=== PATIENT | male | born 1950 | race African-American/Black ===

== ENCOUNTER 2017-10-22 16:50 | Emergency (ER) | payer MEDICARE, MEDICAID ==
[2017-10-22 17:30] LABS: Hematocrit 47.5 % (42.0-52.0); Mean Platelet Volume 8.8 fL (7.4-10.4); Red Blood Cell (RBC) Count 5.26 mill/uL (4.70-6.10); White Blood Cell (WBC) Count 6.5 thou/uL (4.8-10.8)
--- NOTE | 2017-10-22 17:37 | RAD ---
PORTABLE CHEST: 10/22/17 HISTORY: Chest pain. Heart size is borderline. There are atherosclerotic changes of the aorta. The lungs are clear of any infiltrative process. IMPRESSION: Borderline heart size. No acute process. POS: [facility]
[2017-10-22 17:48] LABS: Band 2 % (5-11); Neutrophil 64 % (42-75); Reactive Lymphocytes 8 % (0-10)
[2017-10-22 17:52] LABS: ALT (SGPT) 44 U/L (8-55); AST (SGOT) 50 U/L (5-34); Alkaline Phosphatase 85 U/L (40-150); Anion Gap 14 mmol/L (10-20); BUN (Urea Nitrogen) 14 mg/dL (8.4-25.7); Bilirubin, Total 0.6 mg/dL (0.2-1.2); CK (CPK) 446 U/L (30-200); Calc. Creatinine Clearance 0 mL/min (70-130); Calcium 8.8 mg/dL (7.8-10.44); Carbon Dioxide 23 mmol/L (23-31); Chloride 99 mmol/L (98-107); Estimated GFR-MDRD 82; Protein, Total 7.5 g/dL (5.8-8.1)
[2017-10-22 17:57] LABS: Troponin I Less than 0.010 ng/mL (< 0.028)
== END 2017-10-22 19:30 | disposition home or self-care (01) ==
LOC: ERS 16:50
DX: J11.1 Influenza due to unidentified influenza virus with other respiratory manifestations (principal); I10 Essential (primary) hypertension; K27.9 Peptic ulcer, site unspecified, unspecified as acute or chronic, without hemorrhage or perforation; F17.210 Nicotine dependence, cigarettes, uncomplicated
CPT/HCPCS: 36415; 71010; 80053; 82550; 82553; 84484; 85025; 93005

== ENCOUNTER 2019-02-02 15:09 | Emergency (ER) | payer MEDICARE, MEDICAID ==
[~2019-02-02 15:09] MED LIST: ISOVUE-370 76%-LOCM 1 ML ONE
[2019-02-02] MEDS ORDERED: Morphine 4 MG/ML VIAL ONE (18:04)
[2019-02-02] MEDS ORDERED: Ondansetron PF 4 MG/2 ML Vial ONE (18:04)
[2019-02-02 18:19] LABS: #Basophils 0.1 thou/uL (0.0-0.2); #Eosinphils 0.1 thou/uL (0.0-0.7); #Monocytes 1.2 thou/uL (0.11-0.59); #Neutrophils 4.7 thou/uL (1.40-6.50); %Eosinophils 0.7 % (0.0-10.0); %Lymphocytes 24.7 % (21.0-51.0); %Monocytes 14.8 % (0.0-10.0); %Neutrophils 58.8 % (42.0-75.0); Hemoglobin 15.2 g/dL (14.0-18.0); Mean Corpuscular Hemoglobin 29.8 pg (27.0-31.0); Mean Corpuscular Volume 92.9 fL (78.0-98.0); Mean Platelet Volume 8.7 fL (7.4-10.4); Platelet Count 252 thou/uL (130-400); RBC Distribution Width 12.9 % (11.5-14.5); White Blood Cell (WBC) Count 8.1 thou/uL (4.8-10.8)
[2019-02-02 18:42] LABS: ALT (SGPT) 42 U/L (8-55); AST (SGOT) 81 U/L (5-34); Albumin 3.7 g/dL (3.4-4.8); Alkaline Phosphatase 340 U/L (40-150); Anion Gap 11 mmol/L (10-20); BUN (Urea Nitrogen) 6 mg/dL (8.4-25.7); Bilirubin, Total 1.5 mg/dL (0.2-1.2); Calc. Creatinine Clearance 0 mL/min (70-130); Calcium 10.9 mg/dL (7.8-10.44); Carbon Dioxide 27 mmol/L (23-31); Chloride 99 mmol/L (98-107); Estimated GFR-MDRD Greater than 90; Globulin 4.4 g/dL (2.4-3.5); Glucose 101 mg/dL (80-115); Lipase 53 U/L (8-78); Potassium 4.4 mmol/L (3.5-5.1); Protein, Total 8.1 g/dL (5.8-8.1); Sodium 133 mmol/L (136-145)
--- NOTE | 2019-02-02 19:26 | CT ---
CT PULMONARY ANGIOGRAM WITH IV CONTRAST AND 3D POST PROCESSING: History: Chest pain. FINDINGS: There is good contrast opacification of the pulmonary artery vasculature without filling defects to s uggest pulmonary embolism. The thoracic aorta is ectatic measuring up to 4 cm, without aneurysmal dis section. No pericardial effusions are seen. Patchy infiltrates are seen in the lower lung weinberg. The re are scattered small pulmonary nodules measuring up to 6 mm (lateral segment right middle lobe). Upper abdominal tomograms demonstrate multiple masses in the liver. There are degenerative changes in the spine. IMPRESSION: 1. No CT evidence of pulmonary embolism. 2. Findings are suspicious for liver and pulmonary metastases. POS: [facility]
== END 2019-02-02 19:30 | disposition home or self-care (01) ==
LOC: ERS 15:09
DX: R07.9 Chest pain, unspecified (principal); R10.9 Unspecified abdominal pain; I10 Essential (primary) hypertension; F17.210 Nicotine dependence, cigarettes, uncomplicated; Z79.899 Other long term (current) drug therapy
CPT/HCPCS: 36415; 71275; 80053; 83690; 84484; 85025; 93005; 96361; 96374; 96375; J2270; J2405; Q9966

== ENCOUNTER 2019-02-10 08:12 | Day surgery (SDC) | payer MEDICARE, MEDICAID ==
[2019-02-09 08:47] VITALS: BMI 20.5
[~2019-02-10 08:12] MED LIST changes: -ISOVUE-370 76%-LOCM 1 ML ONE; +Prevnar 13-Val Conj/PF 0.5 ML SYRINGE IM ONE
[2019-02-10 08:44] LABS: PTT 30.5 SEC (22.9-36.1); Prothrombin Time 13.5 SEC (12.0-14.7)
[2019-02-10] MEDS ORDERED: Sodium Bicarbonate 2.5 MEQ/5 ML VIAL ONE (10:23)
[2019-02-10] MEDS ORDERED: Fentanyl 100 MCG/2 ML VIAL ONE (10:23)
[2019-02-10] MEDS ORDERED: Midazolam HCl 2 mg/2 ml Vial ONE (10:23)
[2019-02-10] MEDS ORDERED: Acetaminophen 500 MG TAB ONE (11:19)
[2019-02-10 11:41] VITALS: BP 135/76; TEMP 98.2
--- NOTE | 2019-02-10 14:08 | CT ---
CT-guided liver mass biopsy HISTORY: Extensive liver metastases. FINDINGS: After explaining the procedure and answering all questions, Limited CT imaging of the abdom en was performed. An anterior approach to a medial segment left liver lobe lesion was planned. Sterile technique, but for local anesthesia and CT guidance, and an anterior subxiphoid approach were used carefully advanced of a 17-gauge trocar needle and a large hypodense mass at the medial segment left liver lobe. This was confirmed with CT. A total of 4 18-gauge biopsy specimens were obtained and submitted to pathology to confirm specimen a dequacy. Needle was removed. Postprocedure imaging shows no evidence of complication. Patient tolerated the pr ocedure well and was returned to the holding area in good condition for further monitoring. IMPRESSION: Technically successful CT-guided biopsy liver mass. Pathology is pending.
== END 2019-02-10 12:20 | disposition home or self-care (01) ==
LOC: CT 08:12
PROVIDERS: ATTEND Internal Medicine Hematology & Oncology
PROC: 0FD23ZX Extraction of Left Lobe Liver, Percutaneous Approach, Diagnostic (ICD-10-PCS; principal; 2019-02-10)
DX: C22.9 Malignant neoplasm of liver, not specified as primary or secondary (principal); F17.210 Nicotine dependence, cigarettes, uncomplicated; J44.9 Chronic obstructive pulmonary disease, unspecified; B19.20 Unspecified viral hepatitis C without hepatic coma; I10 Essential (primary) hypertension
CPT/HCPCS: 36415; 47000; 77002; 85610; 85730; 88307; 88333; 88334; J2250; J3010

== ENCOUNTER 2019-03-05 08:15 | Inpatient (IN) | payer MEDICARE, MEDICAID ==
--- NOTE | 2019-03-05 08:34 | CT ---
CT HEAD NONCONTRAST: HISTORY: CVA. Difficulty speaking. FINDINGS: There is no evidence of acute intracranial hemorrhage or infarct. Mild diffuse cortical atrophy and c hronic ischemic small vessel disease. There is no mass effect or shift of midline structures. Very dense calcification within the carotid siphons bilaterally. IMPRESSION: No acute cranial abnormalities are demonstrated. Severe atherosclerosis. Findings were called to Dr. Kim in the Emergency Department at 0831 hours. Code CR. Transcribed Date/Time: 03/05/2019 8:36 AM
[2019-03-05 09:06] LABS: Hemoglobin 18.7 g/dL (14.0-18.0); Mean Corpuscular HGB CONC 31.8 g/dL (32.0-36.0); Mean Corpuscular Hemoglobin 29.9 pg (27.0-31.0); Mean Platelet Volume 9.5 fL (7.4-10.4); Platelet Count 334 thou/uL (130-400); RBC Distribution Width 13.9 % (11.5-14.5); Red Blood Cell (RBC) Count 6.25 mill/uL (4.70-6.10); White Blood Cell (WBC) Count 15.2 thou/uL (4.8-10.8)
[2019-03-05 09:12] LABS: INR-International Normal Ratio 1.1; PTT 25.8 SEC (22.9-36.1); Prothrombin Time 14.3 SEC (12.0-14.7)
--- NOTE | 2019-03-05 09:14 | RAD ---
Portable chest: HISTORY: Mental status change. COMPARISON: 01/30/2019 Right lower lobe atelectasis and/or infiltrate and probable small effusion. Vascular markings normal. Left lung clear. IMPRESSION: Right basilar infiltrate and atelectasis with probable small effusion.
[2019-03-05 09:18] LABS: Band 3 % (5-11); Lymphocytes 8 % (21-51); Monocytes 4 % (0-10)
[2019-03-05 09:19] LABS: Platelet Morphology Comment Appears Adequate
[2019-03-05 09:31] LABS: ALT (SGPT) 79 U/L (8-55); AST (SGOT) 162 U/L (5-34); Albumin 3.6 g/dL (3.4-4.8); Alkaline Phosphatase 257 U/L (40-150); Anion Gap 17 mmol/L (10-20); BUN (Urea Nitrogen) 43 mg/dL (8.4-25.7); Bilirubin, Total 4.7 mg/dL (0.2-1.2); CK (CPK) 17 U/L (30-200); Calc. Creatinine Clearance 0 mL/min (70-130); Carbon Dioxide 28 mmol/L (23-31); Chloride 106 mmol/L (98-107); Estimated GFR-MDRD 76; Globulin 5.7 g/dL (2.4-3.5); Glucose 91 mg/dL (80-115); Potassium 3.9 mmol/L (3.5-5.1); Protein, Total 9.3 g/dL (5.8-8.1); Sodium 147 mmol/L (136-145)
[2019-03-05] MEDS ORDERED: Piperacillin/Tazobactam 4.5 GM VIAL ONE (09:33)
[2019-03-05] MEDS ORDERED: Morphine 4 MG/ML VIAL ONE (09:33)
[2019-03-05] MEDS ORDERED: Bisacodyl 5 MG TAB PO PRN (10:00)
[2019-03-05] MEDS ORDERED: Vancomycin HCl 1 GM in Premix Bag 1 BAG IVPB SCH (10:00)
[2019-03-05] MEDS ORDERED: Zoledronic Acid 4 MG in Sodium Chloride 0.9% 100 ML IVPB SCH (10:00)
[2019-03-05] MEDS ORDERED: Ondansetron PF 4 MG/2 ML Vial ONE (10:25)
--- NOTE | 2019-03-05 11:42 | HP ---
PRIMARY CARE PROVIDER: Darlene Lozano MD. CHIEF COMPLAINT: Weakness. HISTORY OF PRESENT ILLNESS: Mr. Rutherford is a pleasant 68-year-old gentleman, who was seen at [facility] on March 05, 2019. He is a chemotherapy patient for liver cancer. He initially presented to the emergency room because of concern over slurred speech. However, it was found that he had dry mouth; and therefore, his words were not articulating well. Overall, he is a poor historian. He denies any nausea or vomiting. He reports having fever last night. He also reports having right-sided chest discomfort, but is unable to characterize it further. He reports cough. He denies any abdominal pain. REVIEW OF SYSTEMS: All other systems reviewed and found to be negative. PAST MEDICAL HISTORY: Asthma, hypertension, peptic ulcer disease, and liver cancer. PAST SURGICAL HISTORY: Gastric surgery. SOCIAL HISTORY: The patient is a current smoker. He smokes half a pack of cigarettes a day. He reports occasional alcohol use. Denies recreational drug use. FAMILY HISTORY: The patient denies any family history of premature coronary artery disease. CODE STATUS: I discussed his code status. He is full code. ALLERGIES: NO KNOWN DRUG ALLERGIES. CURRENT MEDICATIONS: 1. Tamsulosin 0.4 mg daily. 2. Trazodone 50 mg at bedtime. 3. Morphine 15 mg every 4 hours as needed. 4. Zofran p.r.n. 5. Amlodipine 5 mg daily. 6. Ranitidine 150 mg daily. 7. Narcan p.r.n. PHYSICAL EXAMINATION: GENERAL: On examination, Mr. Rutherford is awake and alert, not in acute distress. VITAL SIGNS: Blood pressure is 124/86, pulse 85, respiratory rate 17, and oxygen saturation 98% on room air. He appears malnourished. EYES: The patient has scleral icterus. No conjunctival pallor. ENT: Dry mucosal membranes. No oropharyngeal erythema or exudates. NECK: Supple and nontender. Trachea is midline. RESPIRATORY: Accessory muscles of breathing are not active. Chest wall movements are symmetric bilaterally. He has wheezing over the right base. CARDIOVASCULAR: S1 and S2 are heard, regular. Peripheral pulses palpable. No carotid bruit. No pericardial rub. ABDOMEN: Soft and nontender. Bowel sounds heard. SKIN: No rashes or subcutaneous nodules. LYMPHATIC: No cervical lymphadenopathy. NEUROLOGIC: Cranial nerves 2 through 12 intact. Deep tendon reflexes 2+. MUSCULOSKELETAL: The patient is able to move all 4 extremities. PSYCHIATRIC: The patient is oriented to person only, not to place or time. Affect is normal. LABORATORY DATA: Mr. Rutherford's labs and investigations were reviewed. I reviewed his electrocardiogram, which shows sinus tachycardia, no ST changes to suggest an acute coronary syndrome. I also reviewed his chest x-ray, which shows right lower lobe infiltrate. Noncontrast CT scan of the brain did not show any acute intracranial abnormalities. He has leukocytosis with 15,200 white cells, elevated hemoglobin of 18.7, normal platelet count. INR 1.1. Elevated sodium of 147, normal potassium, normal creatinine, elevated blood urea nitrogen of 43, elevated calcium of 15. Elevated total bilirubin of 47, elevated AST of 162, elevated ALT of 79, . Elevated lactic acid level of 2.7. ASSESSMENT AND PLAN: Mr. Rutherford is a pleasant 68-year-old gentleman, who was seen at [facility] on March 05, 2019. His problem list includes: 1. Sepsis: Mr. Rutherford is presenting with sepsis, most likely secondary to pneumonia. He will be admitted to the hospital for further management. 2. Pneumonia: He has been started on vancomycin and Zosyn, which I will continue. We will follow blood cultures. 3. Hypercalcemia: The patient has received a dose of Zometa. Oncology Service will be consulted for opinion and help with management. I will also administer calcitonin. 4. Dehydration: The patient is clinically dehydrated. We will provide intravenous fluids and reassess. 5. History of hepatocellular carcinoma: Further management per Oncology Service. 6. Abnormal liver function tests: Secondary to hepatocellular carcinoma. 7. Hypertension: We will monitor vital signs and titrate antihypertensives as needed. Many thanks for allowing me to participate in your patient's care. Please feel free to contact me with any questions or concerns. LEVEL OF RISK: High. LEVEL OF COMPLEXITY: High. Job ID: [id number]
[2019-03-05] MEDS: Vancomycin HCl 750 MG in Sodium Chloride 0.9% 250 ML 250 ML IVPB SCH ×2 (13:09→14:07)
[2019-03-05] MEDS: Sodium Chloride 0.9% 1,000 ML IV SCH (13:29)
[2019-03-05] MEDS: Piperacillin/Tazobactam 4.5 GM in Sodium Chloride 0.9% 100 ML IVPB SCH ×2 (14:09→22:20)
[2019-03-05 14:11] LABS: Troponin I Less than 0.010 ng/mL (< 0.028)
[2019-03-05] MEDS ORDERED: Prevnar 13-Val Conj/PF 0.5 ML SYRINGE IM ONE (14:30)
[2019-03-05 15:33] LABS: Bilirubin Small (Negative); Blood, Urine Negative (Negative); Clarity CLEAR (Clear); Glucose, Urine (Dipstick) Negative (Negative); Leukocyte Negative (Negative); Nitrite Negative (Negative); Protein, Urine (Dipstick) Negative (Neg-Trace); Specific Gravity, Urine 1.021 (1.002-1.036)
[2019-03-05 15:42] LABS: Bacteria/HPF None Seen HPF (None Seen); Hyaline Casts/LPF 0-3 HYALINE CAST LPF (0-3 Hyaline); Pathc Cast-AUWi Flag 0.13 (0-2.49); Squamous Epithelial 0-3 HPF (0-3); WBC/HPF 0-3 HPF (0-3)
[2019-03-05 18:36] LABS: Troponin I Less than 0.010 ng/mL (< 0.028)
[2019-03-06] MEDS ORDERED: Ibuprofen 600 MG TAB PO SCH (02:00)
[2019-03-06] MEDS: Sodium Chloride 0.9% 1,000 ML IV SCH (02:24)
[2019-03-06 04:27] LABS: Anion Gap 16 mmol/L (10-20); BUN (Urea Nitrogen) 50 mg/dL (8.4-25.7); Calc. Creatinine Clearance 32 mL/min (70-130); Carbon Dioxide 26 mmol/L (23-31); Chloride 111 mmol/L (98-107); Estimated GFR-MDRD 48; Glucose 84 mg/dL (80-115); Potassium 3.6 mmol/L (3.5-5.1); Sodium 149 mmol/L (136-145)
[2019-03-06 04:33] LABS: Calcium 13.9 mg/dL (7.8-10.44)
[2019-03-06 05:16] LABS: Band 14 % (5-11); Hemoglobin 17.7 g/dL (14.0-18.0); Lymphocytes 5 % (21-51); MDiff Complete? YES; Mean Corpuscular HGB CONC 32.1 g/dL (32.0-36.0); Mean Corpuscular Hemoglobin 30.2 pg (27.0-31.0); Mean Platelet Volume 9.6 fL (7.4-10.4); Monocytes 8 % (0-10); Neutrophil 73 % (42-75); Platelet Count 298 thou/uL (130-400); Red Blood Cell (RBC) Count 5.86 mill/uL (4.70-6.10); White Blood Cell (WBC) Count 18.9 thou/uL (4.8-10.8)
[2019-03-06] MEDS: Piperacillin/Tazobactam 4.5 GM in Sodium Chloride 0.9% 100 ML IVPB SCH (05:51)
[2019-03-06] MEDS ORDERED: Eucerin (Mineral Oil/Petrolatum,White) 30 gm Jar TOP PRN (06:49)
[2019-03-06] MEDS ORDERED: Artificial Tears 18 DROP/0.9 ML EA EYE PRN (06:49)
[2019-03-06] MEDS ORDERED: Loratadine 10 MG TAB PO PRN (06:49)
[2019-03-06] MEDS ORDERED: hydrALAZINE 20 MG/ML VIAL SLOW IVP PRN (06:49)
[2019-03-06] MEDS ORDERED: Senokot S 8.6-50 MG TAB PO PRN (06:49)
[2019-03-06] MEDS ORDERED: Ondansetron PF 4 MG/2 ML Vial IVP PRN (06:49)
[2019-03-06] MEDS ORDERED: Cepastat Lozenges 1 LOZ PO PRN (06:49)
[2019-03-06] MEDS ORDERED: Loperamide HCl 2 MG CAP PO PRN (06:49)
[2019-03-06] MEDS ORDERED: Acetaminophen 500 MG TAB PO PRN (06:49)
[2019-03-06] MEDS ORDERED: Diabetic Tussin 200 MG/10 ML UDCUP PO PRN (06:49)
[2019-03-06] MEDS ORDERED: Sodium Chloride 0.65% Nasal 44 ML BOT EA NARE PRN (06:49)
[2019-03-06] MEDS ORDERED: Morphine 4 MG/ML VIAL SLOW IVP PRN (06:50)
[2019-03-06] MEDS: Sodium Chloride 0.45% 1,000 ML IV SCH ×2 (07:51→16:19)
[2019-03-06] MEDS: Enoxaparin Sodium 30 MG/0.3 ML SYRINGE SC SCH (08:17)
[2019-03-06] MEDS: Tamsulosin HCl 0.4 MG CAP PO SCH ×2 (08:18→08:24)
[2019-03-06] MEDS: Polyethylene Glycol 3350 17 GM Packet PO SCH (08:18)
[2019-03-06] MEDS: Saccharomyces boulardii 250 MG CAP PO SCH ×2 (08:18→08:24)
--- NOTE | 2019-03-06 10:13 | PDOC.PN ---
- Subjective Encounter Start Date: 03/06/19 Encounter Start Time: 07:00 pt is confused, cachectic, dehydrated, unable to take PO, very weak - Objective Resuscitation Status - Order Detail: 03/05/19 10:00 Resuscitation Status Routine Resuscitation Status: FULL: Full Resuscitation Discussed with: patient ALCIDES Reviewed: Yes Vital Signs & Weight: Vital Signs (12 hours) Temp Pulse Resp BP Pulse Ox 03/06/19 08:00 96 03/06/19 07:50 97.8 F 88 16 118/79 96 03/06/19 04:00 97.4 F L 92 16 144/91 H 98 03/06/19 01:54 95 16 139/97 H 03/05/19 23:32 97.7 F 94 16 128/87 96 Weight Weight 121 lb 0.54 oz I&O: 03/05/19 03/06/19 03/07/19 06:59 06:59 06:59 Intake Total 615 Output Total 600 Balance 15 Result Diagrams: 03/06/19 03:53 03/06/19 03:53 Phys Exam - Physical Examination Constitutional: NAD cachectic, HEENT: PERRLA, sclera anicteric dry MM Neck: no JVD, supple Respiratory: no wheezing, no rales, no rhonchi Cardiovascular: RRR, no significant murmur, no rub Gastrointestinal: soft, no distention, positive bowel sounds abdominal discomfort noted Musculoskeletal: no edema, pulses present Neurological: moves all 4 limbs Lymphatic: no nodes Deviation from normal: confused Skin: no rash Dx/Plan (1) Acute metabolic encephalopathy Code(s): G93.41 - METABOLIC ENCEPHALOPATHY Status: Acute Comment: due to hypercalcemia, dehydration, and possibly sepsis (2) Abnormal LFTs Code(s): R94.5 - ABNORMAL RESULTS OF LIVER FUNCTION STUDIES Status: Acute Comment: due to HCC (3) Acute kidney injury Code(s): N17.9 - ACUTE KIDNEY FAILURE, UNSPECIFIED Status: Acute Comment: due to volume deplation (4) Dehydration Code(s): E86.0 - DEHYDRATION Status: Acute (5) Hypercalcemia of malignancy Code(s): E83.52 - HYPERCALCEMIA Status: Acute (6) 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 Code(s): C78.00 - SECONDARY MALIGNANT NEOPLASM OF UNSPECIFIED LUNG; C22.0 - LIVER CELL CARCINOMA Status: Acute (7) Protein-calorie malnutrition, severe Code(s): E43 - UNSPECIFIED SEVERE PROTEIN-CALORIE MALNUTRITION Status: Chronic (8) Right lower lobe pneumonia Code(s): J18.1 - LOBAR PNEUMONIA, UNSPECIFIED ORGANISM Status: Acute (9) Sepsis Code(s): A41.9 - SEPSIS, UNSPECIFIED ORGANISM Status: Acute (10) BPH (benign prostatic hyperplasia) Code(s): N40.0 - BENIGN PROSTATIC HYPERPLASIA WITHOUT LOWER URINRY TRACT SYMP Status: Chronic (11) Hypertension Code(s): I10 - ESSENTIAL (PRIMARY) HYPERTENSION Status: Chronic - Plan cont current plan of care, 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 * consult palliative care, may need hospice or placement on discharge Review of Systems - Review of Systems Other: unable to review due to encephalopathy - Medications/Allergies Allergies/Adverse Reactions: Allergies Allergy/AdvReac Type Severity Reaction Status Date / Time No Known Allergies Allergy Verified 02/10/19 10:11 Medications: Current Medications Acetaminophen (Tylenol) 500 mg PO Q6H PRN PRN Reason: Mild Pain (1-3) Albuterol/Ipratropium (Duoneb) 3 ml NEB [id number] PRN PRN Reason: SOB &/or Wheezing Artificial Tears (Tears Naturale) 2 drop EA EYE PRN PRN PRN Reason: Dry Eyes Bisacodyl (Dulcolax) 10 mg PO DAILYPRN PRN PRN Reason: Constipation Enoxaparin Sodium (Lovenox) 30 mg SC 0900 [facility] Last Admin: 03/06/19 08:17 Dose: 30 mg Guaifenesin (Robitussin Sf) 200 mg PO Q4H PRN PRN Reason: Cough Hydralazine HCl (Apresoline) 10 mg SLOW IVP Q4H PRN PRN Reason: SBP > 180 and HR < 70 Sodium Chloride (1/2 Normal Saline) 1,000 mls @ 125 mls/hr IV .Q8H [facility] Last Admin: 03/06/19 07:51 Dose: 1,000 mls Piperacillin Sod/Tazobactam (Sod 3.375 gm/ Sodium Chloride) 100 mls @ 200 mls/ hr IVPB Q6HR [facility] Loperamide HCl (Imodium) 2 mg PO PRN PRN PRN Reason: Diarrhea/Loose Stools Loratadine (Claritin) 10 mg PO DAILYPRN PRN PRN Reason: Sinus Symptoms Mineral Oil/White Petrolatum (Eucerin Cream) 0 gm TOP BIDPRN PRN PRN Reason: Dry Skin Morphine Sulfate (Morphine) 2 mg SLOW IVP Q2H PRN PRN Reason: Pain Ondansetron HCl (Zofran Odt) 4 mg PO Q6H PRN PRN Reason: Nausea/Vomiting Ondansetron HCl (Zofran) 4 mg IVP Q6H PRN PRN Reason: Nausea/Vomiting Polyethylene Glycol (Miralax) 17 gm PO DAILY [facility] Last Admin: 03/06/19 08:18 Dose: Not Given Saccharomyces Boulardii (Florastor) 250 mg PO DAILY [facility] Last Admin: 03/06/19 08:24 Dose: Not Given Senna/Docusate Sodium (Senokot S) 2 tab PO BID PRN PRN Reason: Constipation Sodium Chloride ([place] Nasal [place] 0.65%) 0 ml EA NARE QIDPRN PRN PRN Reason: Nasal Congestion Sodium Chloride (Flush - Normal Saline) 10 ml IVF Q12HR [facility] Last Admin: 03/06/19 08:18 Dose: Not Given Sodium Chloride (Flush - Normal Saline) 10 ml IVF PRN PRN PRN Reason: Saline Flush Tamsulosin HCl (Flomax) 0.4 mg PO DAILY [facility] Last Admin: 03/06/19 08:24 Dose: Not Given Throat Lozenges (Cepastat Lozenges) 1 topher PO Q2H PRN PRN Reason: Sore Throat
[2019-03-06] MEDS: Piperacillin/Tazobactam 3.375 GM in Sodium Chloride 0.9% 100 ML IVPB SCH ×2 (11:33→17:05)
--- NOTE | 2019-03-06 14:17 | CON ---
DATE OF CONSULTATION: REASON FOR CONSULT: Liver cancer. HISTORY OF PRESENT ILLNESS: Mr. Rutherford is a 68-year-old gentleman with a history of hepatitis C virus, who was diagnosed with hepatocellular carcinoma in early January. His AFP was 90,000 at diagnosis[address] He saw Dr. Dumont and the plan was to obtain Flovent neb and oral chemotherapy for him. Over the last 2 weeks, he has gotten progressively weaker with significant weight loss, AFP has increased greater than 200,000. He began to have some altered mental status, so presented to the emergency room for evaluation. His calcium was 15. He did receive a dose of Zometa and he was started on IV fluids. He was seen at bedside with his mother and aunt. The patient is arousable and denies any pain. The patient is somnolent, but arousable and denies any pain at this time. PAST MEDICAL HISTORY: 1. Newly diagnosed stage 4 hepatocellular carcinoma. 2. Hypertension. 3. Asthma. 4. COPD. 5. Liver disease. 6. Acid reflex. 7. History of untreated hepatitis C. PAST SURGICAL HISTORY: Gastric surgery. ALLERGIES: NO KNOWN DRUG ALLERGIES. HOME MEDICATIONS: 1. Albuterol p.r.n. 2. Norvasc 5 mg daily. 3. Flovent b.i.d. 4. MS Contin 15 mg q.4 hours p.r.n. 5. Zofran p.r.n. 6. Ranitidine 150 mg b.i.d. 7. Flomax 0.4 mg daily. FAMILY HISTORY: Mother has lung cancer. Cousin has lung and liver cancer. SOCIAL HISTORY: . Lives with his mother. Current everyday smoker with 50 pack year history in the past. Alcohol and illicit drug use. REVIEW OF SYSTEMS: Unable to obtain secondary to somnolence. PHYSICAL EXAMINATION: VITAL SIGNS: Temperature is 97.4, pulse is 87, respiratory rate 16, and BP is 119/78. He is 93% on room air. GENERAL: Cachectic male, in no acute distress. HEENT: Normocephalic and atraumatic. NECK: Supple. CV: Regular rate and rhythm. LUNGS: Clear anterior. ABDOMEN: Distended. He has a palpable lower. EXTREMITIES: No clubbing, cyanosis, or edema. SKIN: No rash. HEMATOLOGIC: No petechiae or purpura. NEUROLOGIC: Unable to assess. PERTINENT LABS AND X-RAYS: Current WBCs are 18.9, hemoglobin 17.7, hematocrit 55.1, and platelet count 298,000, 73% neutrophils, 14% bands, and 5% lymphocytes. PT is 14.3, INR is 1.1, and PTT is 25.8. Sodium is 149, potassium 3.6, chloride 111, CO2 is 26, BUN is 50, creatinine 1.73, and calcium is 13.9. Troponin is negative. Urine is negative. Brain CT was negative for metastatic disease. Chest x-ray showed right lower lobe atelectasis. ASSESSMENT: 1. Stage 4 hepatoma with lung met. 2. Hypercalcemia. 3. Cachexia. DISCUSSION: The patient has received Zometa and is currently receiving IV fluids. We will continue to monitor his calcium. He his kidney function has declined over the last 24 hours. We will monitor that closely. The patient's MS Contin has been resumed. Palliative Care has been consulted. The patient clearly has progressed over the last several weeks, in fact doubling his alpha fetoprotein. The patient has not received the oral chemotherapy yet. We will discuss code status with Dr. Dumont and Dr. Jimenez, as he is currently a full code. I did discuss with the family and the patient that this is stage 4 disease and all treatment is palliative in nature and they stated understanding. Thank you for the consult. We will follow along closely. Job ID: [id number]
[2019-03-06 15:21] VITALS: BMI 16.4
[2019-03-07] MEDS: Piperacillin/Tazobactam 3.375 GM in Sodium Chloride 0.9% 100 ML IVPB SCH ×5 (00:18→23:51)
[2019-03-07] MEDS: Morphine 2 MG/ML SYRINGE SLOW IVP PRN ×4 (00:18→20:37)
[2019-03-07] MEDS: Sodium Chloride 0.45% 1,000 ML IV SCH ×2 (00:26→09:07)
[2019-03-07 08:48] LABS: #Eosinphils 0.1 thou/uL (0.0-0.7); #Lymphocytes 0.8 thou/uL (1.20-3.40); #Monocytes 1.1 thou/uL (0.11-0.59); #Neutrophils 12.4 thou/uL (1.40-6.50); %Basophils 0.1 % (0.0-1.0); %Eosinophils 0.7 % (0.0-10.0); %Lymphocytes 5.5 % (21.0-51.0); %Monocytes 7.7 % (0.0-10.0); Mean Corpuscular HGB CONC 31.1 g/dL (32.0-36.0); Mean Corpuscular Hemoglobin 29.3 pg (27.0-31.0); Mean Corpuscular Volume 94.1 fL (78.0-98.0); Mean Platelet Volume 9.9 fL (7.4-10.4); Platelet Count 252 thou/uL (130-400); RBC Distribution Width 14.1 % (11.5-14.5); Red Blood Cell (RBC) Count 5.48 mill/uL (4.70-6.10); White Blood Cell (WBC) Count 14.4 thou/uL (4.8-10.8)
[2019-03-07] MEDS: Enoxaparin Sodium 30 MG/0.3 ML SYRINGE SC SCH (09:07)
[2019-03-07] MEDS: Tamsulosin HCl 0.4 MG CAP PO SCH ×2 (09:07→09:13)
[2019-03-07] MEDS: Saccharomyces boulardii 250 MG CAP PO SCH ×2 (09:07→09:13)
[2019-03-07] MEDS: Polyethylene Glycol 3350 17 GM Packet PO SCH (09:07)
[2019-03-07 09:09] LABS: ALT (SGPT) 60 U/L (8-55); AST (SGOT) 137 U/L (5-34); Albumin 2.6 g/dL (3.4-4.8); Alkaline Phosphatase 181 U/L (40-150); Anion Gap 14 mmol/L (10-20); BUN (Urea Nitrogen) 56 mg/dL (8.4-25.7); Bilirubin, Total 5.1 mg/dL (0.2-1.2); Calc. Creatinine Clearance 29 mL/min (70-130); Carbon Dioxide 23 mmol/L (23-31); Chloride 112 mmol/L (98-107); Estimated GFR-MDRD 42; Globulin 4.4 g/dL (2.4-3.5); Glucose 60 mg/dL (80-115); Potassium 3.3 mmol/L (3.5-5.1); Sodium 146 mmol/L (136-145)
--- NOTE | 2019-03-07 09:52 | PDOC.PN ---
- Subjective Encounter Start Date: 03/07/19 Encounter Start Time: 07:00 Patient seen and examined. pt is still disoriented, No overnight events - Objective Resuscitation Status - Order Detail: 03/05/19 10:00 Resuscitation Status Routine Resuscitation Status: FULL: Full Resuscitation Discussed with: anabela MCGRATH Reviewed: Yes Vital Signs & Weight: Weight Admit Weight 119 lb Weight 121 lb 0.54 oz I&O: 03/06/19 03/07/19 03/08/19 06:59 06:59 06:59 Intake Total 615 1740 Output Total 600 Balance 15 1740 Result Diagrams: 03/07/19 08:31 03/07/19 08:31 Phys Exam - Physical Examination Constitutional: NAD HEENT: PERRLA, sclera anicteric Neck: no JVD, supple Respiratory: no wheezing, no rales, no rhonchi Cardiovascular: RRR, no significant murmur, no rub Gastrointestinal: soft, no distention, positive bowel sounds Musculoskeletal: no edema, pulses present Neurological: moves all 4 limbs Lymphatic: no nodes Psychiatric: normal affect Skin: normal turgor Dx/Plan (1) Acute metabolic encephalopathy Code(s): G93.41 - METABOLIC ENCEPHALOPATHY Status: Acute Comment: due to hypercalcemia, dehydration, and possibly sepsis (2) Abnormal LFTs Code(s): R94.5 - ABNORMAL RESULTS OF LIVER FUNCTION STUDIES Status: Acute Comment: due to HCC (3) Acute kidney injury Code(s): N17.9 - ACUTE KIDNEY FAILURE, UNSPECIFIED Status: Acute Comment: due to volume deplation (4) Dehydration Code(s): E86.0 - DEHYDRATION Status: Acute (5) Hypercalcemia of malignancy Code(s): E83.52 - HYPERCALCEMIA Status: Acute (6) 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 Code(s): C78.00 - SECONDARY MALIGNANT NEOPLASM OF UNSPECIFIED LUNG; C22.0 - LIVER CELL CARCINOMA Status: Acute (7) Protein-calorie malnutrition, severe Code(s): E43 - UNSPECIFIED SEVERE PROTEIN-CALORIE MALNUTRITION Status: Chronic (8) Right lower lobe pneumonia Code(s): J18.1 - LOBAR PNEUMONIA, UNSPECIFIED ORGANISM Status: Acute (9) Sepsis Code(s): A41.9 - SEPSIS, UNSPECIFIED ORGANISM Status: Acute (10) BPH (benign prostatic hyperplasia) Code(s): N40.0 - BENIGN PROSTATIC HYPERPLASIA WITHOUT LOWER URINRY TRACT SYMP Status: Chronic (11) Hypertension Code(s): I10 - ESSENTIAL (PRIMARY) HYPERTENSION Status: Chronic - Plan cont current plan of care, plan discussed w/ family, continue antibiotics, 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 * continue empiric zosyn * replace potassium * spoke with mother * his prognosis is very poor Review of Systems - Review of Systems Other: not reliable due to encephalopathy - Medications/Allergies Allergies/Adverse Reactions: Allergies Allergy/AdvReac Type Severity Reaction Status Date / Time No Known Allergies Allergy Verified 02/10/19 10:11 Medications: Current Medications Acetaminophen (Tylenol) 500 mg PO Q6H PRN PRN Reason: Mild Pain (1-3) Last Admin: 03/06/19 16:59 Dose: 500 mg Albuterol/Ipratropium (Duoneb) 3 ml NEB [id number] PRN PRN Reason: SOB &/or Wheezing Artificial Tears (Tears Naturale) 2 drop EA EYE PRN PRN PRN Reason: Dry Eyes Bisacodyl (Dulcolax) 10 mg PO DAILYPRN PRN PRN Reason: Constipation Enoxaparin Sodium (Lovenox) 30 mg SC 0900 [facility] Last Admin: 03/07/19 09:07 Dose: 30 mg Guaifenesin (Robitussin Sf) 200 mg PO Q4H PRN PRN Reason: Cough Hydralazine HCl (Apresoline) 10 mg SLOW IVP Q4H PRN PRN Reason: SBP > 180 and HR < 70 Sodium Chloride (1/2 Normal Saline) 1,000 mls @ 125 mls/hr IV .Q8H [facility] Last Admin: 03/07/19 09:07 Dose: 1,000 mls Piperacillin Sod/Tazobactam (Sod 3.375 gm/ Sodium Chloride) 100 mls @ 200 mls/ hr IVPB Q6HR [facility] Last Admin: 03/07/19 05:05 Dose: 100 mls Loperamide HCl (Imodium) 2 mg PO PRN PRN PRN Reason: Diarrhea/Loose Stools Loratadine (Claritin) 10 mg PO DAILYPRN PRN PRN Reason: Sinus Symptoms Mineral Oil/White Petrolatum (Eucerin Cream) 0 gm TOP BIDPRN PRN PRN Reason: Dry Skin Morphine Sulfate (Morphine) 2 mg SLOW IVP Q2H PRN PRN Reason: Pain Last Admin: 03/07/19 09:13 Dose: 2 mg Ondansetron HCl (Zofran Odt) 4 mg PO Q6H PRN PRN Reason: Nausea/Vomiting Ondansetron HCl (Zofran) 4 mg IVP Q6H PRN PRN Reason: Nausea/Vomiting Polyethylene Glycol (Miralax) 17 gm PO DAILY [facility] Last Admin: 03/07/19 09:07 Dose: Not Given Saccharomyces Boulardii (Florastor) 250 mg PO DAILY [facility] Last Admin: 03/07/19 09:13 Dose: Not Given Senna/Docusate Sodium (Senokot S) 2 tab PO BID PRN PRN Reason: Constipation Sodium Chloride ([place] Nasal [place] 0.65%) 0 ml EA NARE QIDPRN PRN PRN Reason: Nasal Congestion Sodium Chloride (Flush - Normal Saline) 10 ml IVF Q12HR [facility] Last Admin: 03/07/19 09:08 Dose: Not Given Sodium Chloride (Flush - Normal Saline) 10 ml IVF PRN PRN PRN Reason: Saline Flush Tamsulosin HCl (Flomax) 0.4 mg PO DAILY [facility] Last Admin: 03/07/19 09:13 Dose: Not Given Throat Lozenges (Cepastat Lozenges) 1 topher PO Q2H PRN PRN Reason: Sore Throat
[2019-03-07] MEDS ORDERED: Potassium Chloride 20 MEQ TAB PO SCH (10:00)
[2019-03-07] MEDS ORDERED: Potassium Chloride 20 MEQ in Premix Bag 1 BAG IVPB SCH (12:00)
[2019-03-07] MEDS ORDERED: Sodium Chloride 0.45% 1,000 ML IV SCH (12:05)
[2019-03-07] MEDS: Dextrose 5% in Water 1,000 ML IV SCH (13:26)
[2019-03-07] MEDS: Sodium Chloride 0.9% 1,000 ML IV SCH ×3 (17:17→22:27)
[2019-03-08] MEDS: Morphine 2 MG/ML SYRINGE SLOW IVP PRN ×4 (01:45→23:45)
[2019-03-08] MEDS: Sodium Chloride 0.9% 1,000 ML IV SCH ×4 (01:55→16:06)
[2019-03-08] MEDS: Dextrose 5% in Water 1,000 ML IV SCH ×3 (01:55→13:24)
[2019-03-08] MEDS: Piperacillin/Tazobactam 3.375 GM in Sodium Chloride 0.9% 100 ML IVPB SCH ×3 (05:17→17:55)
--- NOTE | 2019-03-08 08:00 | PRG ---
DATE OF SERVICE: 03/08/2019 SUBJECTIVE: A 68-year-old with recent diagnosis of hepatocellular cancer, admitted due to generalized weakness and failure to thrive. The patient also was found to have hypercalcemia and DELIO, necessitating Nephrology consult. The patient is more awake today with fluid resuscitation. Complained of right upper abdominal pain and tenderness. Denied fever, nausea, or vomiting. OBJECTIVE: VITAL SIGNS: Temperature 96.6, pulse 76, respiratory rate 16, SpO2 94 on room air, and blood pressure 126/77. GENERAL: Cachectic, elderly male, in no obvious distress. Afebrile, acyanotic. HEENT: Normocephalic, atraumatic. Pupils are reacting to light. Oral mucosa is moist. CARDIOVASCULAR: Regular rhythm and rate with normal heart sounds. RESPIRATORY: Fair air entry bilaterally with no obvious crackle or rhonchi, or use of accessory muscles. GASTROINTESTINAL: Abdomen is full with right upper quadrant tenderness. Bowel sound is normoactive. EXTREMITIES: Muscle wasting noted. Otherwise, no edema or erythema appreciated. Distal pulses are palpable. NEUROLOGIC: Conscious, and alert and oriented x3 with appropriate mental status. Conversational, and moving all limbs. DIAGNOSTIC DATA: CMP showed sodium of 141, potassium 3.2, creat 1.67 ASSESSMENT AND PLAN: 1. Hypercalcemia: This is most likely related to hepatocellular cancer. It is not driven by PTH, as intact PTH is low. Most likely, PTH-related peptide secreted by the hepatocellular cancer is responsible. The patient is status post treatment with Zometa. We will continue treatment with IV saline and monitor renal function and serum calcium. There is no overt evidence of fluid overload at this time, but should that happen, we will add diuretics. 2. Acute kidney injury: This most likely is due to hemodynamic factors related to hypercalcemia-induced diuresis and dehydration. Creat is begining to trend down. We will continue normal saline at 200 mL/h and monitor renal function. 3. Hypernatremia: Due to poor oral intake and free water losses. Resolved. We will discontinue D5 water. We will encourage oral intake and free water intake. 4. Hypokalemia. Due to diuresis initially hypercalcemia induced and now due to saline induced. Replete with potassium chloride. We will monitor and replete as needed. 5. Hepatocellular cancer, stage IV. Defer treatment to Hematology and Oncology. 6. Other treatment as per primary attending. Job ID: [id number] MTDD
[2019-03-08] MEDS: Saccharomyces boulardii 250 MG CAP PO SCH (08:16)
[2019-03-08] MEDS: Tamsulosin HCl 0.4 MG CAP PO SCH (08:17)
[2019-03-08] MEDS: Polyethylene Glycol 3350 17 GM Packet PO SCH ×2 (08:17→16:06)
[2019-03-08] MEDS: Enoxaparin Sodium 30 MG/0.3 ML SYRINGE SC SCH (08:17)
[2019-03-08 09:09] LABS: ALT (SGPT) 59 U/L (8-55); AST (SGOT) 138 U/L (5-34); Albumin 2.4 g/dL (3.4-4.8); Alkaline Phosphatase 176 U/L (40-150); Anion Gap 11 mmol/L (10-20); BUN (Urea Nitrogen) 51 mg/dL (8.4-25.7); Calc. Creatinine Clearance 33 mL/min (70-130); Calcium 10.3 mg/dL (7.8-10.44); Carbon Dioxide 19 mmol/L (23-31); Chloride 114 mmol/L (98-107); Estimated GFR-MDRD 50; Globulin 4.3 g/dL (2.4-3.5); Glucose 90 mg/dL (80-115); Potassium 3.2 mmol/L (3.5-5.1); Protein, Total 6.7 g/dL (5.8-8.1); Sodium 141 mmol/L (136-145)
--- NOTE | 2019-03-08 09:35 | PDOC.PN ---
- Subjective Encounter Start Date: 03/08/19 Encounter Start Time: 09:34 Subjective: alert, nno specific complaints - Objective Resuscitation Status - Order Detail: 03/05/19 10:00 Resuscitation Status Routine Resuscitation Status: FULL: Full Resuscitation Discussed with: patient ALCIDES Reviewed: Yes Vital Signs & Weight: Vital Signs (12 hours) Temp Pulse Resp BP Pulse Ox 03/08/19 08:00 97.6 F 65 16 111/62 95 Weight Admit Weight 119 lb Weight 121 lb 0.54 oz I&O: 03/07/19 03/08/19 03/09/19 06:59 06:59 06:59 Intake Total 1740 1050 Balance 1740 1050 Result Diagrams: 03/07/19 08:31 03/08/19 08:42 Phys Exam - Physical Examination Neck: no JVD Respiratory: clear to auscultation bilateral Cardiovascular: RRR, no significant murmur Gastrointestinal: positive bowel sounds tender over liver Musculoskeletal: no edema Dx/Plan (1) Abnormal LFTs Code(s): R94.5 - ABNORMAL RESULTS OF LIVER FUNCTION STUDIES Status: Acute Comment: due to HCC (2) Acute kidney injury Code(s): N17.9 - ACUTE KIDNEY FAILURE, UNSPECIFIED Status: Acute Comment: due to volume deplation (3) Acute metabolic encephalopathy Code(s): G93.41 - METABOLIC ENCEPHALOPATHY Status: Resolved Comment: due to hypercalcemia, dehydration, and possibly sepsis (4) Dehydration Code(s): E86.0 - DEHYDRATION Status: Resolved (5) Hypercalcemia of malignancy Code(s): E83.52 - HYPERCALCEMIA Status: Acute (6) 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 Code(s): C78.00 - SECONDARY MALIGNANT NEOPLASM OF UNSPECIFIED LUNG; C22.0 - LIVER CELL CARCINOMA Status: Acute (7) Hypertension Code(s): I10 - ESSENTIAL (PRIMARY) HYPERTENSION Status: Chronic Qualifiers: Hypertension type: essential hypertension Qualified Code(s): I10 - Essential (primary) hypertension (8) Protein-calorie malnutrition, severe Code(s): E43 - UNSPECIFIED SEVERE PROTEIN-CALORIE MALNUTRITION Status: Chronic - Plan calcium normalized on zometa -: on iv fluids for acute renal failure -: on iv morphine for pain -: discuss with oncology, prognosis poor * .
[2019-03-09] MEDS: Sodium Chloride 0.9% 1,000 ML IV SCH ×5 (01:07→22:52)
[2019-03-09] MEDS: Piperacillin/Tazobactam 3.375 GM in Sodium Chloride 0.9% 100 ML IVPB SCH ×5 (01:07→22:53)
[2019-03-09 04:53] LABS: ALT (SGPT) 63 U/L (8-55); AST (SGOT) 137 U/L (5-34); Albumin 2.6 g/dL (3.4-4.8); Alkaline Phosphatase 193 U/L (40-150); Anion Gap 11 mmol/L (10-20); BUN (Urea Nitrogen) 42 mg/dL (8.4-25.7); Bilirubin, Total 6.3 mg/dL (0.2-1.2); Calc. Creatinine Clearance 36 mL/min (70-130); Carbon Dioxide 20 mmol/L (23-31); Chloride 114 mmol/L (98-107); Estimated GFR-MDRD 54; Globulin 4.2 g/dL (2.4-3.5); Glucose 75 mg/dL (80-115); Protein, Total 6.8 g/dL (5.8-8.1); Sodium 142 mmol/L (136-145)
[2019-03-09 05:05] LABS: Potassium 2.8 mmol/L (3.5-5.1)
[2019-03-09] MEDS: Morphine 2 MG/ML SYRINGE SLOW IVP PRN (06:21)
[2019-03-09] MEDS ORDERED: Potassium Chloride 20 MEQ in Premix Bag 1 BAG IVPB SCH (07:00)
--- NOTE | 2019-03-09 07:26 | CON ---
DATE OF CONSULTATION: 03/07/2019 CONSULTING PHYSICIAN: Gwendolyn Thomas MD REASON FOR CONSULTATION: Hypercalcemia and acute kidney failure. HISTORY OF PRESENT ILLNESS: This is a 68-year-old male with past medical history significant for hypertension, peptic ulcer disease, hepatitis C infection, and recent diagnosis of hepatocellular cancer, admitted due to worsening generalized weakness associated with slurred speech. The patient is a poor historian and the following history was gleaned from review of medical record. He reportedly complained of fever. He was found to have elevated creatinine as well as hypernatremia, hence was admitted to the hospital. The patient received Zometa in the ER and was started on IV fluid with improvement in serum calcium from 15 to 12. Creatinine, however, went up from 1.16 on March 05 to 1.93 today. PAST MEDICAL HISTORY: 1. Recently diagnosed stage IV hepatocellular cancer. 2. Hypertension. 3. Asthma. 4. COPD. 5. Hepatitis C infection. 6. Gastroesophageal reflux disease. 7. Chronic liver disease. 8. Tobacco abuse disorder. 9. Back surgery. 10. History of gastric surgery. FAMILY HISTORY: Mother reportedly had lung cancer and a cousin has lung and liver cancer. SOCIAL HISTORY: The patient is a current everyday smoker, smokes about a pack a day. Occasional alcohol use also is reported, but there is no history of recreational drug use. The patient is . Lives with mother. ALLERGIES: NO KNOWN DRUG ALLERGIES REPORTED. HOME MEDICATIONS: 1. Albuterol p.r.n. 2. Amlodipine 5 mg daily. 3. Flovent b.i.d. 4. MS Contin 15 mg q.4 p.r.n. for pain. 5. Zofran 8 mg p.o. q.8 p.r.n. for nausea, vomiting. 6. Ranitidine 150 mg p.o. b.i.d. 7. Flomax 0.4 mg p.o. daily. REVIEW OF SYSTEMS: Could not be obtained due to the patient's condition. PHYSICAL EXAMINATION: VITAL SIGNS: Temperature 97.6, pulse 79, respiratory rate 16, SpO2 of 92% on room air, blood pressure is 103/61. Afebrile. GENERAL: Cachectic, elderly male, in no obvious distress. The patient is lethargic, but wakes up with stimulation, and goes back to sleep. HEENT: Anicteric. Normocephalic, atraumatic. Oral mucosa is dry. NECK: Supple with no obvious masses. RESPIRATORY: Fair air entry bilateral with no obvious rhonchi or crackles or use of accessory muscles. CARDIOVASCULAR: Regular rhythm and rate with normal heart sounds one and two. No obvious murmur was appreciated. GASTROINTESTINAL: Midline surgical scar noted. Right upper quadrant tenderness with hepatomegaly noted. Bowel sound is normoactive. EXTREMITIES: Cachectic with muscle wasting. No obvious edema or erythema appreciated. Distal pulses are palpable. NEUROLOGIC: The patient is lethargic. Wakes up with stimulation, but goes back to sleep. Answers few questions appropriately. DIAGNOSTIC DATA: CBC today showed WBC count of 14, hemoglobin of 16, platelet of 252. Coagulation panel showed PT 14.3, INR 1.1, PTT 25.8. CMP today showed sodium 146, potassium 3.3, chloride 112, CO2 23, BUN 56, creatinine 1.93, glucose 60, calcium 12.0, total bilirubin 5.1, AST 137, ALT 60, alkaline phosphatase 181, total protein 7.0, albumin 2.6, globulin 4.4. Urinalysis of March 05 showed clear urine with specific gravity of 1.021 with positive bilirubin, but negative protein, glucose, ketone, blood, nitrite, or leukocyte esterase. Chest x-ray on March 05 showed right lower lobe atelectasis and/or infiltrates and probable small effusion with normal vascular markings. Left lung is said to be clear. ASSESSMENT: 1. Acute kidney injury: This most likely due to dehydration from hypercalcemia-induced diuresis as well as poor oral intake. 2. Hypernatremia: Due to above free water intake and increased hypercalcemia-induced diuresis. 3. Hypercalcemia is most likely cancer related. PTH-related peptide most likely is responsible given history of hepatocellular cancer. The patient is status post treatment with Zometa and IV fluids. Levels are down from 15 to 12. 4. Hypokalemia due to renal losses and poor oral intake. 5. Stage IV hepatocellular cancer. Oncology is following and palliative care treatment is considered. 6. Chronic hepatitis C infection. 7. Chronic tobacco abuse disorder. 8. History of hypertension. PLAN: 1. We will increase normal saline to 200 mL/h. 2. We will also start the patient on D5 500 mL/h given hypernatremia. 3. We will also get intact PTH. 4. The patient is currently full code, but Palliative Care has been consulted given poor prognosis of this patient. Given advanced level of hepatocellular cancer, Hospice Care might be the best approach for this patient. We will continue current treatment and await family meeting with Palliative Care team. Many thanks for involving us in the care of this patient. We will continue to follow along with you. Further recommendation to follow depending on hospital course. Job ID: [id number]
[2019-03-09] MEDS: Potassium Chloride 20 MEQ TAB PO SCH ×2 (08:00→19:03)
[2019-03-09] MEDS: Enoxaparin Sodium 30 MG/0.3 ML SYRINGE SC SCH ×2 (08:00→11:14)
[2019-03-09] MEDS: Tamsulosin HCl 0.4 MG CAP PO SCH ×2 (08:00→11:15)
[2019-03-09] MEDS: Saccharomyces boulardii 250 MG CAP PO SCH ×2 (08:00→11:14)
[2019-03-09] MEDS: Dextrose 5%-Lactated Ringers 1,000 ML IV SCH ×4 (08:03→22:53)
[2019-03-09 08:11] LABS: Magnesium 1.7 mg/dL (1.6-2.6)
[2019-03-09 08:14] LABS: Phosphorus 1.8 mg/dL (2.3-4.7)
[2019-03-09] MEDS: Polyethylene Glycol 3350 17 GM Packet PO SCH (08:16)
--- NOTE | 2019-03-09 08:22 | PRG ---
DATE OF SERVICE: 03/09/2019 SUBJECTIVE: A 68-year-old male with stage IV hepatocellular cancer, being followed up for acute kidney injury and hypercalcemia. The patient is awake, but somewhat confused. Still complaining of right upper quadrant pain and tenderness. Oral intake has remained abysmal. OBJECTIVE: VITAL SIGNS: Temperature 98, pulse 83, respiratory rate 20, SpO2 of 93% on room air, BP is 118/77. GENERAL: Cachectic, elderly male, in some distress. Afebrile and acyanotic. HEENT: Normocephalic, atraumatic. Sunken eyelids with wasting of facial muscles. Oral mucosa and tongue are very dry. CARDIOVASCULAR: Regular rhythm and rate with normal heart sounds. RESPIRATORY: Fair air entry bilaterally with some transmitted sounds. No obvious rhonchi or use of accessory muscles. GI: Abdomen is full with marked right upper quadrant tenderness. EXTREMITIES: Muscle wasting noted. No edema or erythema appreciated. NEUROLOGIC: Conscious, alert, oriented to person at least. The patient has some confusion. He was trying to drink water through a sponge. Obeys commands otherwise appropriately. DIAGNOSTIC DATA: CMP showed sodium 142, potassium 2.8, chloride 114, CO2 20, anion gap 11, BUN 42, creatinine 1.56, glucose 75, calcium 10, total bilirubin 6.3, AST 137, ALT 63, alkaline phosphatase 193, total protein 6.8, albumin 2.6, globulin 4.2. ASSESSMENT: 1. Acute kidney injury: Due to hypercalcemia-induced diuresis and volume depletion. Creatinine is trending downwards, but not yet back to baseline. Oral intake is abysmal. We will continue IV fluid therapy and monitor renal function. 2. Hypercalcemia: Due to hepatocellular cancer, most likely PTH related peptide mediated. Intact PTH was low. The patient is status post treatment with Zometa. We will continue IV fluids for now. There is no evidence of fluid overload. 3. Hypernatremia: Resolved. 4. Hypokalemia: Persistent. We will replete with 120 mEq of potassium chloride today. We will also get magnesium and replete magnesium level if low. 5. Hepatocellular cancer stage IV: Prognosis is poor. We would defer treatment and management to Hematology and Oncology. Palliative care also is on this case. 6. Encephalopathy: The patient has waxing and waning mental status. This most likely is related to the liver failure, most likely hepatic encephalopathy. 7. Diet. Oral intake remains abysmal. We defer to primary attending. 8. Metabolic acidosis: We will change normal saline to LR. We will also add D5 to the LR due to poor oral intake and low blood sugars. Job ID: [id number]
[2019-03-09] MEDS ORDERED: Potassium Phosphate 9 MMOL in Sodium Chloride 0.9% 100 ML IVPB SCH (08:45)
--- NOTE | 2019-03-09 12:54 | PDOC.PN ---
- Subjective Encounter Start Date: 03/09/19 Encounter Start Time: 10:15 Subjective: pt up in bed complains of pain to his ruq, appear confused - Objective Resuscitation Status - Order Detail: 03/05/19 10:00 Resuscitation Status Routine Resuscitation Status: FULL: Full Resuscitation Discussed with: patient Vital Signs & Weight: Vital Signs (12 hours) Temp Pulse Resp BP Pulse Ox 03/09/19 08:00 97.4 F L 92 18 133/79 97 Weight Admit Weight 119 lb Weight 121 lb 0.54 oz I&O: 03/08/19 03/09/19 03/10/19 06:59 06:59 06:59 Intake Total 1050 3000 Balance 1050 3000 Result Diagrams: 03/07/19 08:31 03/09/19 03:52 Phys Exam - Physical Examination Neck: no nodes, no JVD, supple, full ROM Respiratory: no wheezing, no rales, no rhonchi, wheezing present, clear to auscultation bilateral Cardiovascular: RRR, no significant murmur, no rub, gallop, irregular Gastrointestinal: soft, positive bowel sounds pain on palpation of ruq Musculoskeletal: no edema, pulses present, edema present Dx/Plan (1) Acute metabolic encephalopathy Code(s): G93.41 - METABOLIC ENCEPHALOPATHY Status: Resolved Comment: due to hypercalcemia, dehydration, and possibly sepsis (2) Abnormal LFTs Code(s): R94.5 - ABNORMAL RESULTS OF LIVER FUNCTION STUDIES Status: Acute Comment: due to HCC (3) Acute kidney injury Code(s): N17.9 - ACUTE KIDNEY FAILURE, UNSPECIFIED Status: Acute Comment: due to volume deplation (4) Hypercalcemia of malignancy Code(s): E83.52 - HYPERCALCEMIA Status: Acute (5) 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 will talk with family about pt's -: poor prognosis. pt not eating much, on supplements. -: will replace electrolytes * . Review of Systems - Review of Systems Respiratory: negative: Cough, Dry, Shortness of Breath, Hemoptysis, SOB with Excertion, Pleuritic Pain, Sputum, Wheezing Cardiovascular: negative: chest pain, palpitations, orthopnea, paroxysmal nocturnal dyspnea, edema, light headedness, other Gastrointestinal: Abdominal Pain - Medications/Allergies Allergies/Adverse Reactions: Allergies Allergy/AdvReac Type Severity Reaction Status Date / Time No Known Allergies Allergy Verified 02/10/19 10:11 Medications: Current Medications Acetaminophen (Tylenol) 500 mg PO Q6H PRN PRN Reason: Mild Pain (1-3) Last Admin: 03/06/19 16:59 Dose: 500 mg Albuterol/Ipratropium (Duoneb) 3 ml NEB [id number] PRN PRN Reason: SOB &/or Wheezing Artificial Tears (Tears Naturale) 2 drop EA EYE PRN PRN PRN Reason: Dry Eyes Bisacodyl (Dulcolax) 10 mg PO DAILYPRN PRN PRN Reason: Constipation Enoxaparin Sodium (Lovenox) 30 mg SC 0900 [facility] Last Admin: 03/09/19 11:14 Dose: Not Given Guaifenesin (Robitussin Sf) 200 mg PO Q4H PRN PRN Reason: Cough Hydralazine HCl (Apresoline) 10 mg SLOW IVP Q4H PRN PRN Reason: SBP > 180 and HR < 70 Piperacillin Sod/Tazobactam (Sod 3.375 gm/ Sodium Chloride) 100 mls @ 200 mls/ hr IVPB Q6HR [facility] Last Admin: 03/09/19 12:40 Dose: Not Given Sodium Chloride (Normal Saline 0.9%) 1,000 mls @ 200 mls/hr IV .Q5H [facility] Last Admin: 03/09/19 12:39 Dose: Not Given Dextrose/Lactated Ringer's (D5 Lr) 1,000 mls @ 200 mls/hr IV .Q5H [facility] Last Admin: 03/09/19 08:03 Dose: 1,000 mls Potassium Phosphate 9 mmol/ (Sodium Chloride) 103 mls @ 25 mls/hr IVPB ONE [facility] Stop: 03/09/19 13:00 Loperamide HCl (Imodium) 2 mg PO PRN PRN PRN Reason: Diarrhea/Loose Stools Loratadine (Claritin) 10 mg PO DAILYPRN PRN PRN Reason: Sinus Symptoms Mineral Oil/White Petrolatum (Eucerin Cream) 0 gm TOP BIDPRN PRN PRN Reason: Dry Skin Morphine Sulfate (Morphine) 2 mg SLOW IVP Q2H PRN PRN Reason: Pain Last Admin: 03/09/19 06:21 Dose: 2 mg Ondansetron HCl (Zofran Odt) 4 mg PO Q6H PRN PRN Reason: Nausea/Vomiting Ondansetron HCl (Zofran) 4 mg IVP Q6H PRN PRN Reason: Nausea/Vomiting Polyethylene Glycol (Miralax) 17 gm PO DAILY [facility] Last Admin: 03/09/19 08:16 Dose: Not Given Potassium Chloride (K-Dur) 40 meq PO BID-[facility] Stop: 03/09/19 17:01 Last Admin: 03/09/19 08:00 Dose: Not Given Potassium Chloride (Klor-Con) 40 meq PO Q4H [facility] Stop: 03/09/19 17:01 Last Admin: 03/09/19 11:14 Dose: Not Given Saccharomyces Boulardii (Florastor) 250 mg PO DAILY [facility] Last Admin: 03/09/19 11:14 Dose: Not Given Senna/Docusate Sodium (Senokot S) 2 tab PO BID PRN PRN Reason: Constipation Sodium Chloride ([place] Nasal [place] 0.65%) 0 ml EA NARE QIDPRN PRN PRN Reason: Nasal Congestion Sodium Chloride (Flush - Normal Saline) 10 ml IVF Q12HR [facility] Last Admin: 03/09/19 08:17 Dose: 10 ml Sodium Chloride (Flush - Normal Saline) 10 ml IVF PRN PRN PRN Reason: Saline Flush Tamsulosin HCl (Flomax) 0.4 mg PO DAILY [facility] Last Admin: 03/09/19 11:15 Dose: Not Given Throat Lozenges (Cepastat Lozenges) 1 topher PO Q2H PRN PRN Reason: Sore Throat
[2019-03-09] MEDS: Morphine 10 MG/0.5 ML ORAL SYRINGE SL PRN (23:08)
[2019-03-10] MEDS: Sodium Chloride 0.9% 1,000 ML IV SCH (05:10)
[2019-03-10] MEDS: Dextrose 5%-Lactated Ringers 1,000 ML IV SCH (05:10)
[2019-03-10] MEDS: Piperacillin/Tazobactam 3.375 GM in Sodium Chloride 0.9% 100 ML IVPB SCH ×3 (08:24→18:30)
--- NOTE | 2019-03-10 08:53 | PRG ---
DATE OF SERVICE: 03/10/2019 SUBJECTIVE: A 68-year-old male with stage IV hepatocellular cancer, admitted due to failure to thrive and hypercalcemia. The patient also was found to have acute kidney injury necessitating Nephrology consult. Since yesterday, the patient refused medications, IV fluids as well as blood draws and reinsertion of IV access. He just wants to be comfortable. Family, however, undecided as to how to proceed. Palliative care is already on the case. He is complaining of some intermittent abdominal pain and only accepts pain medication. Oral intake is grossly limited due to dysphagia. The patient also has worsening and waning mental status changes. OBJECTIVE: VITAL SIGNS: No vitals today. The patient is refusing vitals also. Last available vital was March 09, 2019 at 8 p.m., which showed temperature 97.6, pulse 95, respiratory rate 16, SpO2 of 95% on room air, and blood pressure is 152/90. GENERAL: Cachectic, elderly looking male in no obvious distress. Afebrile and acyanotic. HEENT: Normocephalic. Wasting of facial muscles noted. Oral mucosa is dry. CARDIOVASCULAR: Regular rhythm and rate with normal heart sounds 1 and 2. RESPIRATORY: Fair air entry bilaterally with no obvious crackles or rhonchi. GI: Right upper quadrant tenderness noted. Bowel sound is normal. EXTREMITIES: Muscle wasting of limbs noted. No obvious edema appreciated. NEUROLOGIC: Conscious and awake. Oriented to person at least. Dysarthria due to excessive dry tongue, limited conversation. The patient moves all extremities to command. DIAGNOSTIC DATA: No labs today. The patient declined IV blood draws. ASSESSMENT: 1. Acute kidney injury: Due to hemodynamic factors related to volume depletion and hypercalcemia-induced diuresis. 2. Hypercalcemia: Most likely related to PTH related peptide elicited by the hepatocellular cancer. Intact PTH is suppressed. 3. Hypokalemia. 4. Stage IV hepatocellular cancer. 5. Severe cachexia. 6. Oropharyngeal dysphagia. 7. Hyponatremia. 8. Metabolic acidosis. 9. Right upper quadrant pain/tenderness. PLAN AND RECOMMENDATION: The patient currently refuses oral and IV medications as well as IV infusion, blood draws, and even vitals. He just wants to be comfortable. At this time, there is no point in continuing any medication if we cannot follow up with labs. Moreover, the patient is refusing medications. I did discuss with 3 family members including the mother, brother Massimo, and sister Val over the phone. I did explain to them that the patient has a terminal illness with poor prognosis and it would be appropriate that the family come together and assist to the patient's request of being made comfortable. I understand that palliative care meeting is scheduled for today. However, if family members insist on full code, I recommend that ethics committee be consulted to look into this case and help resolve it. I will sign off at this time as there is no point hanging around as the patient is refusing treatments and wants to be comfortable only. Job ID: [id number]
[2019-03-10] MEDS: Saccharomyces boulardii 250 MG CAP PO SCH (09:35)
[2019-03-10] MEDS: Tamsulosin HCl 0.4 MG CAP PO SCH (09:35)
[2019-03-10] MEDS: Polyethylene Glycol 3350 17 GM Packet PO SCH (09:35)
[2019-03-10] MEDS: Enoxaparin Sodium 30 MG/0.3 ML SYRINGE SC SCH (09:44)
[2019-03-10 09:50] LABS: Chloride 118 mmol/L (98-107); Potassium 3.3 mmol/L (3.5-5.1); Sodium 145 mmol/L (136-145)
[2019-03-10 09:51] LABS: Calcium 10.3 mg/dL (7.8-10.44); Glucose 81 mg/dL (80-115)
[2019-03-10 09:53] LABS: Anion Gap 17 mmol/L (10-20); Carbon Dioxide 13 mmol/L (23-31)
[2019-03-10 09:55] LABS: Calc. Creatinine Clearance 42 mL/min (70-130); Estimated GFR-MDRD 66
[2019-03-10 09:56] LABS: BUN (Urea Nitrogen) 41 mg/dL (8.4-25.7)
--- NOTE | 2019-03-10 18:24 | PDOC.PN ---
- Subjective Encounter Start Date: 03/10/19 Encounter Start Time: 13:45 Subjective: pt up in bed no complains - Objective Resuscitation Status - Order Detail: 03/10/19 16:28 Resuscitation Status Routine Resuscitation Status: DNAR: NO Resuscitation Discussed with: mother nedra lewis Vital Signs & Weight: Vital Signs (12 hours) Temp Pulse Resp BP Pulse Ox 03/10/19 08:00 96.0 F L 93 18 151/93 H 96 Weight Admit Weight 119 lb Weight 121 lb 0.54 oz I&O: 03/09/19 03/10/19 03/11/19 06:59 06:59 06:59 Intake Total 3000 100 240 Output Total 150 Balance 3000 -50 240 Result Diagrams: 03/07/19 08:31 03/10/19 09:06 Phys Exam - Physical Examination Respiratory: no wheezing, no rales, no rhonchi, wheezing present, clear to auscultation bilateral Cardiovascular: RRR, no significant murmur, no rub, gallop, irregular Gastrointestinal: soft, non-tender, no distention, positive bowel sounds Dx/Plan (1) Acute metabolic encephalopathy Code(s): G93.41 - METABOLIC ENCEPHALOPATHY Status: Resolved Comment: due to hypercalcemia, dehydration, and possibly sepsis (2) Abnormal LFTs Code(s): R94.5 - ABNORMAL RESULTS OF LIVER FUNCTION STUDIES Status: Acute Comment: due to HCC (3) Acute kidney injury Code(s): N17.9 - ACUTE KIDNEY FAILURE, UNSPECIFIED Status: Acute Comment: due to volume deplation (4) Hypercalcemia of malignancy Code(s): E83.52 - HYPERCALCEMIA Status: Acute (5) 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 Review of Systems - Review of Systems Respiratory: negative: Cough, Dry, Shortness of Breath, Hemoptysis, SOB with Excertion, Pleuritic Pain, Sputum, Wheezing Cardiovascular: negative: chest pain, palpitations, orthopnea, paroxysmal nocturnal dyspnea, edema, light headedness, other Gastrointestinal: negative: Nausea, Vomiting, Abdominal Pain, Diarrhea, Constipation, Melena, Hematochezia, Other - Medications/Allergies Allergies/Adverse Reactions: Allergies Allergy/AdvReac Type Severity Reaction Status Date / Time No Known Allergies Allergy Verified 02/10/19 10:11 Medications: Current Medications Acetaminophen (Tylenol) 500 mg PO Q6H PRN PRN Reason: Mild Pain (1-3) Last Admin: 03/06/19 16:59 Dose: 500 mg Albuterol/Ipratropium (Duoneb) 3 ml NEB [id number] PRN PRN Reason: SOB &/or Wheezing Artificial Tears (Tears Naturale) 2 drop EA EYE PRN PRN PRN Reason: Dry Eyes Bisacodyl (Dulcolax) 10 mg PO DAILYPRN PRN PRN Reason: Constipation Enoxaparin Sodium (Lovenox) 30 mg SC 0900 [facility] Last Admin: 03/10/19 09:44 Dose: 30 mg Guaifenesin (Robitussin Sf) 200 mg PO Q4H PRN PRN Reason: Cough Hydralazine HCl (Apresoline) 10 mg SLOW IVP Q4H PRN PRN Reason: SBP > 180 and HR < 70 Piperacillin Sod/Tazobactam (Sod 3.375 gm/ Sodium Chloride) 100 mls @ 200 mls/ hr IVPB Q6HR [facility] Last Admin: 03/10/19 15:40 Dose: Not Given Loperamide HCl (Imodium) 2 mg PO PRN PRN PRN Reason: Diarrhea/Loose Stools Loratadine (Claritin) 10 mg PO DAILYPRN PRN PRN Reason: Sinus Symptoms Mineral Oil/White Petrolatum (Eucerin Cream) 0 gm TOP BIDPRN PRN PRN Reason: Dry Skin Morphine Sulfate (Morphine) 2 mg SLOW IVP Q2H PRN PRN Reason: Pain Last Admin: 03/09/19 06:21 Dose: 2 mg Morphine Sulfate (Roxanol Solution) 10 mg SL Q4H PRN PRN Reason: Severe Pain (7-10) Last Admin: 03/09/19 23:08 Dose: 10 mg Ondansetron HCl (Zofran Odt) 4 mg PO Q6H PRN PRN Reason: Nausea/Vomiting Ondansetron HCl (Zofran) 4 mg IVP Q6H PRN PRN Reason: Nausea/Vomiting Polyethylene Glycol (Miralax) 17 gm PO DAILY [facility] Last Admin: 03/10/19 09:35 Dose: 17 gm Saccharomyces Boulardii (Florastor) 250 mg PO DAILY [facility] Last Admin: 03/10/19 09:35 Dose: 250 mg Senna/Docusate Sodium (Senokot S) 2 tab PO BID PRN PRN Reason: Constipation Sodium Chloride ([place] Nasal [place] 0.65%) 0 ml EA NARE QIDPRN PRN PRN Reason: Nasal Congestion Tamsulosin HCl (Flomax) 0.4 mg PO DAILY [facility] Last Admin: 03/10/19 09:35 Dose: 0.4 mg Throat Lozenges (Cepastat Lozenges) 1 topher PO Q2H PRN PRN Reason: Sore Throat
[2019-03-11] MEDS: Morphine 10 MG/0.5 ML ORAL SYRINGE SL PRN (04:25)
[2019-03-11] MEDS: Saccharomyces boulardii 250 MG CAP PO SCH (09:58)
[2019-03-11] MEDS: Tamsulosin HCl 0.4 MG CAP PO SCH (09:59)
[2019-03-11] MEDS: Polyethylene Glycol 3350 17 GM Packet PO SCH (09:59)
[2019-03-11] MEDS: Enoxaparin Sodium 30 MG/0.3 ML SYRINGE SC SCH (10:00)
--- NOTE | 2019-03-11 22:01 | PDOC.EVN ---
Event Note - Event Note Event Note: spoke with pt's mother nedar pierson about pt's overall poor prognosis. spent about 30min talking with pt's mother and brother. Answered all question answered. pt's mother decided not to do any heroic measures. will make pt DNAR. Pt's mother and brother will speak with other siblings about possible hospice vs NH.
--- NOTE | 2019-03-11 22:02 | PDOC.PN ---
- Subjective Encounter Start Date: 03/11/19 Encounter Start Time: 13:45 Subjective: pt up in bed complains of pain to his abdomen - Objective Resuscitation Status - Order Detail: 03/10/19 16:28 Resuscitation Status Routine Resuscitation Status: DNAR: NO Resuscitation Discussed with: mother nedra lewis Vital Signs & Weight: Vital Signs (12 hours) Temp Pulse Resp BP Pulse Ox 03/11/19 19:22 97.4 F L 94 16 129/77 97 Weight Admit Weight 119 lb Weight 121 lb 0.54 oz I&O: 03/10/19 03/11/19 03/12/19 06:59 06:59 06:59 Intake Total 100 390 600 Output Total 150 600 Balance -50 390 0 Result Diagrams: 03/07/19 08:31 03/10/19 09:06 Phys Exam - Physical Examination Neck: no nodes, no JVD, supple, full ROM Respiratory: no wheezing, no rales, no rhonchi, clear to auscultation bilateral Cardiovascular: RRR, no significant murmur, no rub, gallop Gastrointestinal: soft, non-tender, no distention, positive bowel sounds Dx/Plan (1) Acute metabolic encephalopathy Code(s): G93.41 - METABOLIC ENCEPHALOPATHY Status: Resolved Comment: due to hypercalcemia, dehydration, and possibly sepsis (2) Abnormal LFTs Code(s): R94.5 - ABNORMAL RESULTS OF LIVER FUNCTION STUDIES Status: Acute Comment: due to HCC (3) Acute kidney injury Code(s): N17.9 - ACUTE KIDNEY FAILURE, UNSPECIFIED Status: Acute Comment: due to volume deplation (4) Hypercalcemia of malignancy Code(s): E83.52 - HYPERCALCEMIA Status: Acute (5) 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 Code(s): C78.00 - SECONDARY MALIGNANT NEOPLASM OF UNSPECIFIED LUNG; C22.0 - LIVER CELL CARCINOMA Status: Acute (6) Hypertension Code(s): I10 - ESSENTIAL (PRIMARY) HYPERTENSION Status: Chronic Qualifiers: Hypertension type: essential hypertension Qualified Code(s): I10 - Essential (primary) hypertension (7) Protein-calorie malnutrition, severe Code(s): E43 - UNSPECIFIED SEVERE PROTEIN-CALORIE MALNUTRITION Status: Chronic - Plan awaiting family's decision about NH vs hospice -: pt continues to have poor appetite. * . Review of Systems - Review of Systems Respiratory: negative: Cough, Dry, Shortness of Breath, Hemoptysis, SOB with Excertion, Pleuritic Pain, Sputum, Wheezing Cardiovascular: negative: chest pain, palpitations, orthopnea, paroxysmal nocturnal dyspnea, edema, light headedness, other Gastrointestinal: Abdominal Pain - Medications/Allergies Allergies/Adverse Reactions: Allergies Allergy/AdvReac Type Severity Reaction Status Date / Time No Known Allergies Allergy Verified 02/10/19 10:11 Medications: Current Medications Acetaminophen (Tylenol) 500 mg PO Q6H PRN PRN Reason: Mild Pain (1-3) Last Admin: 03/06/19 16:59 Dose: 500 mg Albuterol/Ipratropium (Duoneb) 3 ml NEB [id number] PRN PRN Reason: SOB &/or Wheezing Artificial Tears (Tears Naturale) 2 drop EA EYE PRN PRN PRN Reason: Dry Eyes Bisacodyl (Dulcolax) 10 mg PO DAILYPRN PRN PRN Reason: Constipation Enoxaparin Sodium (Lovenox) 30 mg SC 0900 [facility] Last Admin: 03/11/19 10:00 Dose: 30 mg Guaifenesin (Robitussin Sf) 200 mg PO Q4H PRN PRN Reason: Cough Loperamide HCl (Imodium) 2 mg PO PRN PRN PRN Reason: Diarrhea/Loose Stools Loratadine (Claritin) 10 mg PO DAILYPRN PRN PRN Reason: Sinus Symptoms Mineral Oil/White Petrolatum (Eucerin Cream) 0 gm TOP BIDPRN PRN PRN Reason: Dry Skin Morphine Sulfate (Roxanol Solution) 10 mg SL Q4H PRN PRN Reason: Severe Pain (7-10) Last Admin: 03/11/19 04:25 Dose: 10 mg Ondansetron HCl (Zofran Odt) 4 mg PO Q6H PRN PRN Reason: Nausea/Vomiting Polyethylene Glycol (Miralax) 17 gm PO DAILY [facility] Last Admin: 03/11/19 09:59 Dose: 17 gm Saccharomyces Boulardii (Florastor) 250 mg PO DAILY [facility] Last Admin: 03/11/19 09:58 Dose: 250 mg Senna/Docusate Sodium (Senokot S) 2 tab PO BID PRN PRN Reason: Constipation Sodium Chloride ([place] Nasal [place] 0.65%) 0 ml EA NARE QIDPRN PRN PRN Reason: Nasal Congestion Tamsulosin HCl (Flomax) 0.4 mg PO DAILY [facility] Last Admin: 03/11/19 09:59 Dose: 0.4 mg Throat Lozenges (Cepastat Lozenges) 1 topher PO Q2H PRN PRN Reason: Sore Throat
[2019-03-12] MEDS: Morphine 10 MG/0.5 ML ORAL SYRINGE SL PRN ×2 (02:22→23:50)
[2019-03-12] MEDS: Ondansetron ODT 4 MG TAB PO PRN ×2 (02:31→23:03)
[2019-03-12] MEDS: Polyethylene Glycol 3350 17 GM Packet PO SCH (10:28)
[2019-03-12] MEDS: Saccharomyces boulardii 250 MG CAP PO SCH (10:28)
[2019-03-12] MEDS: Enoxaparin Sodium 30 MG/0.3 ML SYRINGE SC SCH (10:32)
[2019-03-12] MEDS: Tamsulosin HCl 0.4 MG CAP PO SCH (10:32)
--- NOTE | 2019-03-12 11:19 | PDOC.PN ---
- Subjective Encounter Start Date: 03/12/19 Encounter Start Time: 07:00 -: old records requested/rev pt is cachectic, very weak, has very poor po intake, no family bedside - Objective Resuscitation Status - Order Detail: 03/10/19 16:28 Resuscitation Status Routine Resuscitation Status: DNAR: NO Resuscitation Discussed with: mother nedra MCGRATH Reviewed: Yes Vital Signs & Weight: Vital Signs (12 hours) Temp Pulse Resp BP Pulse Ox 03/12/19 08:00 97.4 F L 85 16 122/75 94 L Weight Admit Weight 119 lb Weight 121 lb 0.54 oz I&O: 03/11/19 03/12/19 03/13/19 06:59 06:59 06:59 Intake Total 390 1080 Output Total 975 Balance 390 105 Result Diagrams: 03/07/19 08:31 03/10/19 09:06 Phys Exam - Physical Examination Constitutional: NAD HEENT: PERRLA, sclera anicteric Neck: no JVD, supple Respiratory: no wheezing, no rales, no rhonchi Cardiovascular: RRR, no significant murmur, no rub Gastrointestinal: soft, non-tender, no distention, positive bowel sounds Musculoskeletal: no edema, pulses present Neurological: moves all 4 limbs Lymphatic: no nodes Psychiatric: normal affect Skin: no rash, normal turgor Dx/Plan (1) Acute metabolic encephalopathy Code(s): G93.41 - METABOLIC ENCEPHALOPATHY Status: Acute Comment: due to hypercalcemia, dehydration, and possibly sepsis (2) Abnormal LFTs Code(s): R94.5 - ABNORMAL RESULTS OF LIVER FUNCTION STUDIES Status: Acute Comment: due to HCC (3) Acute kidney injury Code(s): N17.9 - ACUTE KIDNEY FAILURE, UNSPECIFIED Status: Acute Comment: due to volume deplation, improving (4) Dehydration Code(s): E86.0 - DEHYDRATION Status: Resolved (5) Hypercalcemia of malignancy Code(s): E83.52 - HYPERCALCEMIA Status: Acute Comment: Improved (6) 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 Code(s): C78.00 - SECONDARY MALIGNANT NEOPLASM OF UNSPECIFIED LUNG; C22.0 - LIVER CELL CARCINOMA Status: Acute (7) Protein-calorie malnutrition, severe Code(s): E43 - UNSPECIFIED SEVERE PROTEIN-CALORIE MALNUTRITION Status: Chronic (8) Right lower lobe pneumonia Code(s): J18.1 - LOBAR PNEUMONIA, UNSPECIFIED ORGANISM Status: Acute Comment : treated in hospital (9) Sepsis Code(s): A41.9 - SEPSIS, UNSPECIFIED ORGANISM Status: Resolved (10) BPH (benign prostatic hyperplasia) Code(s): N40.0 - BENIGN PROSTATIC HYPERPLASIA WITHOUT LOWER URINRY TRACT SYMP Status: Chronic (11) Hypertension Code(s): I10 - ESSENTIAL (PRIMARY) HYPERTENSION Status: Chronic Qualifiers: Hypertension type: essential hypertension Qualified Code(s): I10 - Essential (primary) hypertension - Plan 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 Review of Systems - Review of Systems Other: not reliable with pt as he was not able to participate conversation - Medications/Allergies Allergies/Adverse Reactions: Allergies Allergy/AdvReac Type Severity Reaction Status Date / Time No Known Allergies Allergy Verified 02/10/19 10:11 Medications: Current Medications Acetaminophen (Tylenol) 500 mg PO Q6H PRN PRN Reason: Mild Pain (1-3) Last Admin: 03/06/19 16:59 Dose: 500 mg Albuterol/Ipratropium (Duoneb) 3 ml NEB [id number] PRN PRN Reason: SOB &/or Wheezing Artificial Tears (Tears Naturale) 2 drop EA EYE PRN PRN PRN Reason: Dry Eyes Bisacodyl (Dulcolax) 10 mg PO DAILYPRN PRN PRN Reason: Constipation Enoxaparin Sodium (Lovenox) 30 mg SC 0900 [facility] Last Admin: 03/12/19 10:32 Dose: 30 mg Guaifenesin (Robitussin Sf) 200 mg PO Q4H PRN PRN Reason: Cough Loperamide HCl (Imodium) 2 mg PO PRN PRN PRN Reason: Diarrhea/Loose Stools Loratadine (Claritin) 10 mg PO DAILYPRN PRN PRN Reason: Sinus Symptoms Mineral Oil/White Petrolatum (Eucerin Cream) 0 gm TOP BIDPRN PRN PRN Reason: Dry Skin Morphine Sulfate (Roxanol Solution) 10 mg SL Q4H PRN PRN Reason: Severe Pain (7-10) Last Admin: 03/12/19 02:22 Dose: 10 mg Ondansetron HCl (Zofran Odt) 4 mg PO Q6H PRN PRN Reason: Nausea/Vomiting Last Admin: 03/12/19 02:31 Dose: 4 mg Polyethylene Glycol (Miralax) 17 gm PO DAILY [facility] Last Admin: 03/12/19 10:28 Dose: Not Given Saccharomyces Boulardii (Florastor) 250 mg PO DAILY [facility] Last Admin: 03/12/19 10:28 Dose: Not Given Senna/Docusate Sodium (Senokot S) 2 tab PO BID PRN PRN Reason: Constipation Sodium Chloride ([place] Nasal [place] 0.65%) 0 ml EA NARE QIDPRN PRN PRN Reason: Nasal Congestion Tamsulosin HCl (Flomax) 0.4 mg PO DAILY [facility] Last Admin: 03/12/19 10:32 Dose: Not Given Throat Lozenges (Cepastat Lozenges) 1 topher PO Q2H PRN PRN Reason: Sore Throat
--- NOTE | 2019-03-12 13:06 | DIS ---
DATE OF ADMISSION: 03/05/2019 DATE OF DISCHARGE: 03/12/2019 PRIMARY CARE PHYSICIAN: [facility] Call admission. DISCHARGE DISPOSITION: Inpatient hospice. PRIMARY DISCHARGE DIAGNOSES: Acute metabolic encephalopathy, acute kidney failure, hypercalcemia of malignancy, abnormal liver function test due to metastatic hepatocellular carcinoma, right lower lobe pneumonia, severe protein-calorie malnutrition, severe dehydration, sepsis. SECONDARY DISCHARGE DIAGNOSES: Metastatic hepatocellular carcinoma, benign enlargement of prostate, hypertension, physical deconditioning. PRIMARY PROCEDURE/OPERATION: None. RADIOLOGICAL INVESTIGATION: CT brain unremarkable. Chest x-ray showed right lower lobe infiltration. SIGNIFICANT LABORATORY DATA: Hemoglobin 16.0. INR 1.1. Creatinine 1.32. AST 137, ALT 63, alkaline phosphatase 193. Urinalysis unremarkable. Blood and urine culture negative. DISCHARGE MEDICATIONS: The patient will continue comfort care medicine at hospice facility. Before coming to the hospital, the patient was on the following medication: 1. Morphine sulfate extended release 15 mg q.4 hourly p.r.n. 2. Zofran 8 mg q.8 hourly p.r.n. 3. Ventolin inhaler q.6 hourly p.r.n. 4. Flovent inhalation b.i.d. 5. Narcan as directed. 6. Ranitidine 150 mg b.i.d. 7. Flomax 0.4 mg daily. 8. Amlodipine 5 mg daily. CONTRAINDICATION: None. CODE STATUS: DNR. 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 Nephrology group was following while in hospital. CASE RESULT PENDING ON DISCHARGE: None. ALLERGIES: NO KNOWN DRUG ALLERGIES. DISCHARGE PLAN: Posthospital, the patient will be discharged to inpatient hospice facility for comfort care only. HOSPITAL COURSE: A 68-year-old male who was admitted by Dr. Mcdonnell on March 05, 2019. This patient has underlying metastatic hepatocellular carcinoma. He was brought to hospital with altered mental status. On admission, his calcium was 15.0. The patient was significantly dehydrated. His renal function was 1.93. He required IV fluid as well as he was given zoledronic acid for hypercalcemia and slowly his calcium was improved. He also had right lower lobe pneumonia which was treated with antibiotic therapy. His abnormal LFT was related with metastatic hepatocellular carcinoma. His abnormal electrolytes were replaced while in the hospital as well as he was given IV fluid for hydration. 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 At that point, we discussed with the family member about goal of care. The patient was made DNR during this hospital course as well as family also decided to consider inpatient hospice for comfort care only. At this point hospice will evaluate and if the patient is qualified for inpatient hospice then the patient will be discharged to inpatient hospice facility for comfort care only. The patient is seen and examined at bedside today. Please see my progress note from today for further detail. Job ID: [id number]
--- NOTE | 2019-03-13 11:05 | PDOC.PN ---
- Subjective Encounter Start Date: 03/13/19 Encounter Start Time: 07:00 Patient seen and examined. No new complaints. No overnight events - Objective Resuscitation Status - Order Detail: 03/10/19 16:28 Resuscitation Status Routine Resuscitation Status: DNAR: NO Resuscitation Discussed with: mother nedra MCGRATH Reviewed: Yes Vital Signs & Weight: Vital Signs (12 hours) Temp Pulse Resp BP Pulse Ox 03/13/19 08:00 97.4 F L 85 16 124/75 94 L Weight Admit Weight 119 lb Weight 121 lb 0.54 oz I&O: 03/12/19 03/13/19 03/14/19 06:59 06:59 06:59 Intake Total 1080 Output Total 975 Balance 105 Result Diagrams: 03/07/19 08:31 03/10/19 09:06 Phys Exam - Physical Examination Constitutional: NAD HEENT: PERRLA, sclera anicteric Neck: no JVD, supple Respiratory: no wheezing, no rales, no rhonchi Cardiovascular: RRR, no significant murmur, no rub Gastrointestinal: soft, non-tender, no distention, positive bowel sounds Musculoskeletal: no edema, pulses present Neurological: non-focal, normal sensation Lymphatic: no nodes Psychiatric: normal affect Skin: no rash, normal turgor Dx/Plan (1) Acute metabolic encephalopathy Code(s): G93.41 - METABOLIC ENCEPHALOPATHY Status: Acute Comment: due to hypercalcemia, dehydration, and possibly sepsis (2) Abnormal LFTs Code(s): R94.5 - ABNORMAL RESULTS OF LIVER FUNCTION STUDIES Status: Acute Comment: due to HCC (3) Acute kidney injury Code(s): N17.9 - ACUTE KIDNEY FAILURE, UNSPECIFIED Status: Acute Comment: due to volume deplation, improving (4) Dehydration Code(s): E86.0 - DEHYDRATION Status: Resolved (5) Hypercalcemia of malignancy Code(s): E83.52 - HYPERCALCEMIA Status: Acute Comment: Improved (6) 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 Code(s): C78.00 - SECONDARY MALIGNANT NEOPLASM OF UNSPECIFIED LUNG; C22.0 - LIVER CELL CARCINOMA Status: Acute (7) Protein-calorie malnutrition, severe Code(s): E43 - UNSPECIFIED SEVERE PROTEIN-CALORIE MALNUTRITION Status: Chronic (8) Right lower lobe pneumonia Code(s): J18.1 - LOBAR PNEUMONIA, UNSPECIFIED ORGANISM Status: Acute Comment : treated in hospital (9) Sepsis Code(s): A41.9 - SEPSIS, UNSPECIFIED ORGANISM Status: Resolved (10) BPH (benign prostatic hyperplasia) Code(s): N40.0 - BENIGN PROSTATIC HYPERPLASIA WITHOUT LOWER URINRY TRACT SYMP Status: Chronic (11) Hypertension Code(s): I10 - ESSENTIAL (PRIMARY) HYPERTENSION Status: Chronic Qualifiers: Hypertension type: essential hypertension Qualified Code(s): I10 - Essential (primary) hypertension - Plan cont current plan of care, continue antibiotics * medication reviewed as below * symptomatic treatment * today meeting with hospice at 11 am and then if family agrees will and hospice approves, will consider discharge * I spoke with family bedside today. Review of Systems - Review of Systems ENT: negative: Ear Pain, Ear Discharge, Nose Pain, Nose Discharge, Nose Congestion, Mouth Pain, Mouth Swelling, Throat Pain, Throat Swelling, Other Respiratory: negative: Cough, Dry, Shortness of Breath, Hemoptysis, SOB with Excertion, Pleuritic Pain, Sputum, Wheezing Cardiovascular: negative: chest pain, palpitations, orthopnea, paroxysmal nocturnal dyspnea, edema, light headedness, other Gastrointestinal: Abdominal Pain. negative: Nausea, Vomiting, Diarrhea, Constipation, Melena, Hematochezia, Other Genitourinary: negative: Dysuria, Frequency, Incontinence, Hematuria, Retention , Other Musculoskeletal: negative: Neck Pain, Shoulder Pain, Arm Pain, Back Pain, Hand Pain, Leg Pain, Foot Pain, Other - Medications/Allergies Allergies/Adverse Reactions: Allergies Allergy/AdvReac Type Severity Reaction Status Date / Time No Known Allergies Allergy Verified 02/10/19 10:11 Medications: Current Medications Acetaminophen (Tylenol) 500 mg PO Q6H PRN PRN Reason: Mild Pain (1-3) Last Admin: 03/06/19 16:59 Dose: 500 mg Albuterol/Ipratropium (Duoneb) 3 ml NEB [id number] PRN PRN Reason: SOB &/or Wheezing Artificial Tears (Tears Naturale) 2 drop EA EYE PRN PRN PRN Reason: Dry Eyes Bisacodyl (Dulcolax) 10 mg PO DAILYPRN PRN PRN Reason: Constipation Enoxaparin Sodium (Lovenox) 30 mg SC 0900 [facility] Last Admin: 03/12/19 10:32 Dose: 30 mg Guaifenesin (Robitussin Sf) 200 mg PO Q4H PRN PRN Reason: Cough Loperamide HCl (Imodium) 2 mg PO PRN PRN PRN Reason: Diarrhea/Loose Stools Loratadine (Claritin) 10 mg PO DAILYPRN PRN PRN Reason: Sinus Symptoms Mineral Oil/White Petrolatum (Eucerin Cream) 0 gm TOP BIDPRN PRN PRN Reason: Dry Skin Morphine Sulfate (Roxanol Solution) 10 mg SL Q4H PRN PRN Reason: Severe Pain (7-10) Last Admin: 03/12/19 23:50 Dose: 10 mg Ondansetron HCl (Zofran Odt) 4 mg PO Q6H PRN PRN Reason: Nausea/Vomiting Last Admin: 03/12/19 23:03 Dose: 4 mg Polyethylene Glycol (Miralax) 17 gm PO DAILY [facility] Last Admin: 03/12/19 10:28 Dose: Not Given Saccharomyces Boulardii (Florastor) 250 mg PO DAILY [facility] Last Admin: 03/12/19 10:28 Dose: Not Given Senna/Docusate Sodium (Senokot S) 2 tab PO BID PRN PRN Reason: Constipation Sodium Chloride ([place] Nasal [place] 0.65%) 0 ml EA NARE QIDPRN PRN PRN Reason: Nasal Congestion Tamsulosin HCl (Flomax) 0.4 mg PO DAILY [facility] Last Admin: 03/12/19 10:32 Dose: Not Given Throat Lozenges (Cepastat Lozenges) 1 topher PO Q2H PRN PRN Reason: Sore Throat
[2019-03-13] MEDS: Ondansetron ODT 4 MG TAB PO PRN (12:20)
[2019-03-13] MEDS: Enoxaparin Sodium 30 MG/0.3 ML SYRINGE SC SCH (12:21)
[2019-03-13] MEDS: Polyethylene Glycol 3350 17 GM Packet PO SCH (12:22)
[2019-03-13] MEDS: Saccharomyces boulardii 250 MG CAP PO SCH (12:22)
[2019-03-13] MEDS: Morphine 10 MG/0.5 ML ORAL SYRINGE SL PRN (12:25)
[2019-03-13] MEDS: Tamsulosin HCl 0.4 MG CAP PO SCH (12:28)
[2019-03-14] MEDS: Morphine 10 MG/0.5 ML ORAL SYRINGE SL PRN ×3 (00:35→19:30)
[2019-03-14] MEDS: Tamsulosin HCl 0.4 MG CAP PO SCH (08:54)
[2019-03-14] MEDS: Saccharomyces boulardii 250 MG CAP PO SCH (08:54)
[2019-03-14] MEDS: Polyethylene Glycol 3350 17 GM Packet PO SCH (08:54)
[2019-03-14] MEDS: Enoxaparin Sodium 30 MG/0.3 ML SYRINGE SC SCH (08:55)
--- NOTE | 2019-03-14 10:06 | PDOC.PN ---
- Subjective Encounter Start Date: 03/14/19 Encounter Start Time: 07:00 pt is overall same, cachectic, requires help with everything Patient seen and examined. No new complaints. No overnight events - Objective Resuscitation Status - Order Detail: 03/10/19 16:28 Resuscitation Status Routine Resuscitation Status: DNAR: NO Resuscitation Discussed with: mother nedra MCGRATH Reviewed: Yes Vital Signs & Weight: Vital Signs (12 hours) Temp Pulse Resp BP Pulse Ox 03/14/19 08:15 97.4 F L 88 14 132/82 95 Weight Admit Weight 119 lb Weight 121 lb 0.54 oz I&O: 03/13/19 03/14/19 03/15/19 06:59 06:59 06:59 Intake Total 500 Output Total 650 Balance -150 Result Diagrams: 03/07/19 08:31 03/10/19 09:06 Phys Exam - Physical Examination Constitutional: NAD HEENT: PERRLA, sclera anicteric Neck: no JVD, supple Respiratory: no wheezing, no rales, no rhonchi Cardiovascular: RRR, no significant murmur, no rub Gastrointestinal: soft, no distention, positive bowel sounds Musculoskeletal: no edema, pulses present Neurological: moves all 4 limbs Lymphatic: no nodes Psychiatric: normal affect Skin: no rash, normal turgor Dx/Plan (1) Acute metabolic encephalopathy Code(s): G93.41 - METABOLIC ENCEPHALOPATHY Status: Acute Comment: due to hypercalcemia, dehydration, and possibly sepsis (2) Abnormal LFTs Code(s): R94.5 - ABNORMAL RESULTS OF LIVER FUNCTION STUDIES Status: Acute Comment: due to HCC (3) Acute kidney injury Code(s): N17.9 - ACUTE KIDNEY FAILURE, UNSPECIFIED Status: Acute Comment: due to volume deplation, improving (4) Dehydration Code(s): E86.0 - DEHYDRATION Status: Resolved (5) Hypercalcemia of malignancy Code(s): E83.52 - HYPERCALCEMIA Status: Acute Comment: Improved (6) 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 Code(s): C78.00 - SECONDARY MALIGNANT NEOPLASM OF UNSPECIFIED LUNG; C22.0 - LIVER CELL CARCINOMA Status: Acute (7) Protein-calorie malnutrition, severe Code(s): E43 - UNSPECIFIED SEVERE PROTEIN-CALORIE MALNUTRITION Status: Chronic (8) Right lower lobe pneumonia Code(s): J18.1 - LOBAR PNEUMONIA, UNSPECIFIED ORGANISM Status: Acute Comment : treated in hospital (9) Sepsis Code(s): A41.9 - SEPSIS, UNSPECIFIED ORGANISM Status: Resolved (10) BPH (benign prostatic hyperplasia) Code(s): N40.0 - BENIGN PROSTATIC HYPERPLASIA WITHOUT LOWER URINRY TRACT SYMP Status: Chronic (11) Hypertension Code(s): I10 - ESSENTIAL (PRIMARY) HYPERTENSION Status: Chronic Qualifiers: Hypertension type: essential hypertension Qualified Code(s): I10 - Essential (primary) hypertension - Plan cont current plan of care, plan discussed w/ family, social scientist * spoke with sister Dejah, as they feel like with hospice, pt may not able to get any extra help with feeding and they do not want pt to with starvation so seems like all family member coming to point of sending him to [facility], but concern with that decision is that pt is always at high risk of recurrent admission * case assembler is working on his discharge plan * medication reviewed as below * symptomatic treatment. Review of Systems - Review of Systems ENT: negative: Ear Pain, Ear Discharge, Nose Pain, Nose Discharge, Nose Congestion, Mouth Pain, Mouth Swelling, Throat Pain, Throat Swelling, Other Respiratory: negative: Cough, Dry, Shortness of Breath, Hemoptysis, SOB with Excertion, Pleuritic Pain, Sputum, Wheezing Cardiovascular: negative: chest pain, palpitations, orthopnea, paroxysmal nocturnal dyspnea, edema, light headedness, other Gastrointestinal: negative: Nausea, Vomiting, Abdominal Pain, Diarrhea, Constipation, Melena, Hematochezia, Other Genitourinary: negative: Dysuria, Frequency, Incontinence, Hematuria, Retention , Other Musculoskeletal: negative: Neck Pain, Shoulder Pain, Arm Pain, Back Pain, Hand Pain, Leg Pain, Foot Pain, Other Other: not reliable due to his level of cognitive status - Medications/Allergies Allergies/Adverse Reactions: Allergies Allergy/AdvReac Type Severity Reaction Status Date / Time No Known Allergies Allergy Verified 02/10/19 10:11 Medications: Current Medications Acetaminophen (Tylenol) 500 mg PO Q6H PRN PRN Reason: Mild Pain (1-3) Last Admin: 03/06/19 16:59 Dose: 500 mg Albuterol/Ipratropium (Duoneb) 3 ml NEB [id number] PRN PRN Reason: SOB &/or Wheezing Artificial Tears (Tears Naturale) 2 drop EA EYE PRN PRN PRN Reason: Dry Eyes Bisacodyl (Dulcolax) 10 mg PO DAILYPRN PRN PRN Reason: Constipation Enoxaparin Sodium (Lovenox) 30 mg SC 0900 [facility] Last Admin: 03/14/19 08:55 Dose: Not Given Guaifenesin (Robitussin Sf) 200 mg PO Q4H PRN PRN Reason: Cough Loperamide HCl (Imodium) 2 mg PO PRN PRN PRN Reason: Diarrhea/Loose Stools Loratadine (Claritin) 10 mg PO DAILYPRN PRN PRN Reason: Sinus Symptoms Mineral Oil/White Petrolatum (Eucerin Cream) 0 gm TOP BIDPRN PRN PRN Reason: Dry Skin Morphine Sulfate (Roxanol Solution) 10 mg SL Q4H PRN PRN Reason: Severe Pain (7-10) Last Admin: 03/14/19 05:57 Dose: 10 mg Ondansetron HCl (Zofran Odt) 4 mg PO Q6H PRN PRN Reason: Nausea/Vomiting Last Admin: 03/13/19 12:20 Dose: 4 mg Polyethylene Glycol (Miralax) 17 gm PO DAILY [facility] Last Admin: 03/14/19 08:54 Dose: 17 gm Saccharomyces Boulardii (Florastor) 250 mg PO DAILY [facility] Last Admin: 03/14/19 08:54 Dose: 250 mg Senna/Docusate Sodium (Senokot S) 2 tab PO BID PRN PRN Reason: Constipation Sodium Chloride ([place] Nasal [place] 0.65%) 0 ml EA NARE QIDPRN PRN PRN Reason: Nasal Congestion Tamsulosin HCl (Flomax) 0.4 mg PO DAILY [facility] Last Admin: 03/14/19 08:54 Dose: 0.4 mg Throat Lozenges (Cepastat Lozenges) 1 topher PO Q2H PRN PRN Reason: Sore Throat
[2019-03-15] MEDS: Morphine 10 MG/0.5 ML ORAL SYRINGE SL PRN ×2 (00:01→06:04)
[2019-03-15] MEDS ORDERED: Morphine 10 MG/0.5 ML ORAL SYRINGE SL PRN (02:33)
[2019-03-15] MEDS ORDERED: Morphine 10 MG/0.5 ML ORAL SYRINGE SL SCH (02:45)
[2019-03-15] MEDS: Tamsulosin HCl 0.4 MG CAP PO SCH (07:51)
[2019-03-15] MEDS: Polyethylene Glycol 3350 17 GM Packet PO SCH (07:51)
[2019-03-15] MEDS: Saccharomyces boulardii 250 MG CAP PO SCH (07:51)
[2019-03-15] MEDS: Enoxaparin Sodium 30 MG/0.3 ML SYRINGE SC SCH (07:56)
--- NOTE | 2019-03-15 10:01 | PDOC.PN ---
- Subjective Encounter Start Date: 03/15/19 Encounter Start Time: 07:00 pt is refusing to eat sometimes even when helped to eat, he is weak, cachectic, still we do not have good discharge placement - Objective Resuscitation Status - Order Detail: 03/10/19 16:28 Resuscitation Status Routine Resuscitation Status: DNAR: NO Resuscitation Discussed with: mother nedra MCGRATH Reviewed: Yes Vital Signs & Weight: Vital Signs (12 hours) Temp Pulse Resp BP BP Pulse Ox 03/15/19 08:15 97.7 F 94 16 128/79 93 L 03/15/19 08:00 97.7 F 94 16 128/79 92 L Weight Admit Weight 119 lb Weight 121 lb 0.54 oz I&O: 03/14/19 03/15/19 03/16/19 06:59 06:59 06:59 Intake Total 500 720 Output Total 650 Balance -150 720 Result Diagrams: 03/07/19 08:31 03/10/19 09:06 Phys Exam - Physical Examination Constitutional: NAD cachectic HEENT: PERRLA, sclera anicteric dry MM Neck: no JVD, supple Respiratory: no wheezing, no rales, no rhonchi Cardiovascular: RRR, no significant murmur, no rub Gastrointestinal: soft, non-tender, no distention, positive bowel sounds Musculoskeletal: no edema, pulses present Neurological: moves all 4 limbs Lymphatic: no nodes Psychiatric: normal affect Skin: no rash, normal turgor Dx/Plan (1) Acute metabolic encephalopathy Code(s): G93.41 - METABOLIC ENCEPHALOPATHY Status: Acute Comment: due to hypercalcemia, dehydration, and possibly sepsis (2) Abnormal LFTs Code(s): R94.5 - ABNORMAL RESULTS OF LIVER FUNCTION STUDIES Status: Acute Comment: due to HCC (3) Acute kidney injury Code(s): N17.9 - ACUTE KIDNEY FAILURE, UNSPECIFIED Status: Acute Comment: due to volume deplation, improving (4) Dehydration Code(s): E86.0 - DEHYDRATION Status: Resolved (5) Hypercalcemia of malignancy Code(s): E83.52 - HYPERCALCEMIA Status: Acute Comment: Improved (6) 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 Code(s): C78.00 - SECONDARY MALIGNANT NEOPLASM OF UNSPECIFIED LUNG; C22.0 - LIVER CELL CARCINOMA Status: Acute (7) Protein-calorie malnutrition, severe Code(s): E43 - UNSPECIFIED SEVERE PROTEIN-CALORIE MALNUTRITION Status: Chronic (8) Right lower lobe pneumonia Code(s): J18.1 - LOBAR PNEUMONIA, UNSPECIFIED ORGANISM Status: Acute Comment : treated in hospital (9) Sepsis Code(s): A41.9 - SEPSIS, UNSPECIFIED ORGANISM Status: Resolved (10) BPH (benign prostatic hyperplasia) Code(s): N40.0 - BENIGN PROSTATIC HYPERPLASIA WITHOUT LOWER URINRY TRACT SYMP Status: Chronic (11) Hypertension Code(s): I10 - ESSENTIAL (PRIMARY) HYPERTENSION Status: Chronic Qualifiers: Hypertension type: essential hypertension Qualified Code(s): I10 - Essential (primary) hypertension - Plan cont current plan of care, social work nurse * continue current treatment plan until pt has good discharge placement * with SNU placement, he will be at high risk for readmission * best option is inpt hospice but family is not agree with this and home hospice not option as family can not take care of him * his prognosis is very poor * medication reviewed as below * symptomatic treatment. Review of Systems - Review of Systems Other: not reliable with pt due to his level of cognitive status - Medications/Allergies Allergies/Adverse Reactions: Allergies Allergy/AdvReac Type Severity Reaction Status Date / Time No Known Allergies Allergy Verified 02/10/19 10:11 Medications: Current Medications Acetaminophen (Tylenol) 500 mg PO Q6H PRN PRN Reason: Mild Pain (1-3) Last Admin: 03/06/19 16:59 Dose: 500 mg Albuterol/Ipratropium (Duoneb) 3 ml NEB [id number] PRN PRN Reason: SOB &/or Wheezing Artificial Tears (Tears Naturale) 2 drop EA EYE PRN PRN PRN Reason: Dry Eyes Bisacodyl (Dulcolax) 10 mg PO DAILYPRN PRN PRN Reason: Constipation Enoxaparin Sodium (Lovenox) 30 mg SC 0900 CHRISTOPHER Last Admin: 03/15/19 07:56 Dose: 30 mg Guaifenesin (Robitussin Sf) 200 mg PO Q4H PRN PRN Reason: Cough Loperamide HCl (Imodium) 2 mg PO PRN PRN PRN Reason: Diarrhea/Loose Stools Loratadine (Claritin) 10 mg PO DAILYPRN PRN PRN Reason: Sinus Symptoms Mineral Oil/White Petrolatum (Eucerin Cream) 0 gm TOP BIDPRN PRN PRN Reason: Dry Skin Morphine Sulfate (Roxanol Solution) 10 mg SL Q4H PRN PRN Reason: Severe Pain (7-10) Last Admin: 03/15/19 06:04 Dose: 10 mg Ondansetron HCl (Zofran Odt) 4 mg PO Q6H PRN PRN Reason: Nausea/Vomiting Last Admin: 03/13/19 12:20 Dose: 4 mg Polyethylene Glycol (Miralax) 17 gm PO DAILY [facility] Last Admin: 03/15/19 07:51 Dose: 17 gm Saccharomyces Boulardii (Florastor) 250 mg PO DAILY [facility] Last Admin: 03/15/19 07:51 Dose: 250 mg Senna/Docusate Sodium (Senokot S) 2 tab PO BID PRN PRN Reason: Constipation Sodium Chloride ([place] Nasal [place] 0.65%) 0 ml EA NARE QIDPRN PRN PRN Reason: Nasal Congestion Tamsulosin HCl (Flomax) 0.4 mg PO DAILY [facility] Last Admin: 03/15/19 07:51 Dose: 0.4 mg Throat Lozenges (Cepastat Lozenges) 1 topher PO Q2H PRN PRN Reason: Sore Throat
[2019-03-16] MEDS: Polyethylene Glycol 3350 17 GM Packet PO SCH (07:38)
[2019-03-16] MEDS: Morphine 10 MG/0.5 ML ORAL SYRINGE SL PRN ×2 (07:51→10:14)
[2019-03-16] MEDS ORDERED: Ziprasidone 20 MG VIAL IM SCH (08:15)
[2019-03-16] MEDS: Tamsulosin HCl 0.4 MG CAP PO SCH (09:24)
[2019-03-16] MEDS: Enoxaparin Sodium 30 MG/0.3 ML SYRINGE SC SCH (09:24)
[2019-03-16] MEDS: Saccharomyces boulardii 250 MG CAP PO SCH (09:24)
--- NOTE | 2019-03-16 10:23 | PDOC.PN ---
- Subjective Encounter Start Date: 03/16/19 Encounter Start Time: 07:00 pt is agitated this morning, no fever, he does not have pain, - Objective Resuscitation Status - Order Detail: 03/10/19 16:28 Resuscitation Status Routine Resuscitation Status: DNAR: NO Resuscitation Discussed with: mother nedra MCGRATH Reviewed: Yes Vital Signs & Weight: Weight Admit Weight 119 lb Weight 121 lb 0.54 oz I&O: 03/15/19 03/16/19 03/17/19 06:59 06:59 06:59 Intake Total 720 240 Output Total 0 Balance 720 240 Result Diagrams: 03/07/19 08:31 03/10/19 09:06 Phys Exam - Physical Examination Constitutional: NAD cachectic HEENT: PERRLA, moist MMs, sclera anicteric Neck: no JVD, supple Respiratory: no wheezing, no rales, no rhonchi Cardiovascular: RRR, no significant murmur, no rub Gastrointestinal: soft, non-tender, no distention, positive bowel sounds Musculoskeletal: no edema, pulses present Neurological: moves all 4 limbs Lymphatic: no nodes Psychiatric: normal affect Skin: no rash, normal turgor Dx/Plan (1) Acute metabolic encephalopathy Code(s): G93.41 - METABOLIC ENCEPHALOPATHY Status: Acute Comment: due to hypercalcemia, dehydration, and possibly sepsis (2) Abnormal LFTs Code(s): R94.5 - ABNORMAL RESULTS OF LIVER FUNCTION STUDIES Status: Acute Comment: due to HCC (3) Acute kidney injury Code(s): N17.9 - ACUTE KIDNEY FAILURE, UNSPECIFIED Status: Acute Comment: due to volume deplation, improving (4) Dehydration Code(s): E86.0 - DEHYDRATION Status: Resolved (5) Hypercalcemia of malignancy Code(s): E83.52 - HYPERCALCEMIA Status: Acute Comment: Improved (6) 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 Code(s): C78.00 - SECONDARY MALIGNANT NEOPLASM OF UNSPECIFIED LUNG; C22.0 - LIVER CELL CARCINOMA Status: Acute (7) Protein-calorie malnutrition, severe Code(s): E43 - UNSPECIFIED SEVERE PROTEIN-CALORIE MALNUTRITION Status: Chronic (8) Right lower lobe pneumonia Code(s): J18.1 - LOBAR PNEUMONIA, UNSPECIFIED ORGANISM Status: Acute Comment : treated in hospital (9) Sepsis Code(s): A41.9 - SEPSIS, UNSPECIFIED ORGANISM Status: Resolved (10) BPH (benign prostatic hyperplasia) Code(s): N40.0 - BENIGN PROSTATIC HYPERPLASIA WITHOUT LOWER URINRY TRACT SYMP Status: Chronic (11) Hypertension Code(s): I10 - ESSENTIAL (PRIMARY) HYPERTENSION Status: Chronic Qualifiers: Hypertension type: essential hypertension Qualified Code(s): I10 - Essential (primary) hypertension - Plan cont current plan of care, home health care social worker * [facility] evaluated and pt deemed not a candidate for inpt hospice * now half-way option with hospice * will try geodon for agitation * medication reviewed as below * symptomatic treatment. * casey saw operator working on his placement Review of Systems - Review of Systems ENT: negative: Ear Pain, Ear Discharge, Nose Pain, Nose Discharge, Nose Congestion, Mouth Pain, Mouth Swelling, Throat Pain, Throat Swelling, Other Respiratory: negative: Cough, Dry, Shortness of Breath, Hemoptysis, SOB with Excertion, Pleuritic Pain, Sputum, Wheezing Cardiovascular: negative: chest pain, palpitations, orthopnea, paroxysmal nocturnal dyspnea, edema, light headedness, other Gastrointestinal: negative: Nausea, Vomiting, Abdominal Pain, Diarrhea, Constipation, Melena, Hematochezia, Other Genitourinary: negative: Dysuria, Frequency, Incontinence, Hematuria, Retention , Other Musculoskeletal: negative: Neck Pain, Shoulder Pain, Arm Pain, Back Pain, Hand Pain, Leg Pain, Foot Pain, Other Other: not reliable due to his cognitive status - Medications/Allergies Allergies/Adverse Reactions: Allergies Allergy/AdvReac Type Severity Reaction Status Date / Time No Known Allergies Allergy Verified 02/10/19 10:11 Medications: Current Medications Acetaminophen (Tylenol) 500 mg PO Q6H PRN PRN Reason: Mild Pain (1-3) Last Admin: 03/06/19 16:59 Dose: 500 mg Albuterol/Ipratropium (Duoneb) 3 ml NEB [id number] PRN PRN Reason: SOB &/or Wheezing Artificial Tears (Tears Naturale) 2 drop EA EYE PRN PRN PRN Reason: Dry Eyes Bisacodyl (Dulcolax) 10 mg PO DAILYPRN PRN PRN Reason: Constipation Enoxaparin Sodium (Lovenox) 30 mg SC 0900 CHRISTOPHER Last Admin: 03/16/19 09:24 Dose: Not Given Guaifenesin (Robitussin Sf) 200 mg PO Q4H PRN PRN Reason: Cough Loperamide HCl (Imodium) 2 mg PO PRN PRN PRN Reason: Diarrhea/Loose Stools Loratadine (Claritin) 10 mg PO DAILYPRN PRN PRN Reason: Sinus Symptoms Mineral Oil/White Petrolatum (Eucerin Cream) 0 gm TOP BIDPRN PRN PRN Reason: Dry Skin Morphine Sulfate (Roxanol Solution) 10 mg SL Q4H PRN PRN Reason: Severe Pain (7-10) Last Admin: 03/16/19 10:14 Dose: 10 mg Ondansetron HCl (Zofran Odt) 4 mg PO Q6H PRN PRN Reason: Nausea/Vomiting Last Admin: 03/13/19 12:20 Dose: 4 mg Polyethylene Glycol (Miralax) [address] [facility] Last Admin: 03/16/19 07:38 Dose: Not Given Saccharomyces Boulardii (Florastor) [address] [facility] Last Admin: 03/16/19 09:24 Dose: Not Given Senna/Docusate Sodium (Senokot S) 2 tab PO BID PRN PRN Reason: Constipation Sodium Chloride ([place] Nasal [place] 0.65%) 0 ml EA NARE QIDPRN PRN PRN Reason: Nasal Congestion Tamsulosin HCl (Flomax) 0.[address] [facility] Last Admin: 03/16/19 09:24 Dose: Not Given Throat Lozenges (Cepastat Lozenges) 1 topher PO Q2H PRN PRN Reason: Sore Throat
--- NOTE | 2019-03-16 12:53 | DIS ---
DATE OF ADMISSION: 03/05/2019 DATE OF DISCHARGE: 03/16/2019 ADDENDUM: Please see my discharge summary dictated on March 12, 2019. The patient was planned for discharge to hospice facility. Hospice has been approved for him and subsequently, the patient's family members were concerned about hospice care and that is why they changed their mind to send him to half-way home. [facility] evaluated and now he was not a candidate for inpatient hospice at this point. Our goal is to discharge him with safe discharge plan, but still concern is within a half-way home placement, he has recurrent admission. Our family preservation caseworker is working on discharge planning. There is no significant change in his discharge summary from March 12, 2019. The patient's condition has not been changed significantly. Once we have proper disposition placement for him, we will consider discharging any time. Job ID: [id number]
[2019-03-17] MEDS: Morphine 10 MG/0.5 ML ORAL SYRINGE SL PRN (01:32)
[2019-03-17] MEDS: Enoxaparin Sodium 30 MG/0.3 ML SYRINGE SC SCH (09:09)
[2019-03-17] MEDS: Tamsulosin HCl 0.4 MG CAP PO SCH (09:09)
[2019-03-17] MEDS: Saccharomyces boulardii 250 MG CAP PO SCH (09:09)
[2019-03-17] MEDS: Polyethylene Glycol 3350 17 GM Packet PO SCH (09:09)
--- NOTE | 2019-03-17 11:58 | PDOC.PN ---
- Subjective Encounter Start Date: 03/17/19 Encounter Start Time: 07:00 Patient seen and examined. No new complaints. No overnight events - Objective Resuscitation Status - Order Detail: 03/10/19 16:28 Resuscitation Status Routine Resuscitation Status: DNAR: NO Resuscitation Discussed with: mother nedra MCGRATH Reviewed: Yes Vital Signs & Weight: Vital Signs (12 hours) Temp Pulse Resp BP Pulse Ox 03/17/19 08:10 97.1 F L 101 H 16 107/71 93 L 03/17/19 08:00 93 L Weight Admit Weight 119 lb Weight 121 lb 0.54 oz I&O: 03/16/19 03/17/19 03/18/19 06:59 06:59 06:59 Intake Total 240 100 Output Total 0 Balance 240 100 Result Diagrams: 03/07/19 08:31 03/10/19 09:06 Phys Exam - Physical Examination Constitutional: NAD HEENT: PERRLA, moist MMs, sclera anicteric Neck: no JVD, supple Respiratory: no wheezing, no rales, no rhonchi Cardiovascular: RRR, no significant murmur, no rub Gastrointestinal: soft, non-tender, no distention, positive bowel sounds Musculoskeletal: no edema, pulses present Neurological: non-focal, normal sensation Lymphatic: no nodes Psychiatric: normal affect Skin: no rash, normal turgor Dx/Plan (1) Acute metabolic encephalopathy Code(s): G93.41 - METABOLIC ENCEPHALOPATHY Status: Acute Comment: due to hypercalcemia, dehydration, and possibly sepsis (2) Abnormal LFTs Code(s): R94.5 - ABNORMAL RESULTS OF LIVER FUNCTION STUDIES Status: Acute Comment: due to HCC (3) Acute kidney injury Code(s): N17.9 - ACUTE KIDNEY FAILURE, UNSPECIFIED Status: Acute Comment: due to volume deplation, improving (4) Dehydration Code(s): E86.0 - DEHYDRATION Status: Resolved (5) Hypercalcemia of malignancy Code(s): E83.52 - HYPERCALCEMIA Status: Acute Comment: Improved (6) 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 Code(s): C78.00 - SECONDARY MALIGNANT NEOPLASM OF UNSPECIFIED LUNG; C22.0 - LIVER CELL CARCINOMA Status: Acute (7) Protein-calorie malnutrition, severe Code(s): E43 - UNSPECIFIED SEVERE PROTEIN-CALORIE MALNUTRITION Status: Chronic (8) Right lower lobe pneumonia Code(s): J18.1 - LOBAR PNEUMONIA, UNSPECIFIED ORGANISM Status: Acute Comment : treated in hospital (9) Sepsis Code(s): A41.9 - SEPSIS, UNSPECIFIED ORGANISM Status: Resolved (10) BPH (benign prostatic hyperplasia) Code(s): N40.0 - BENIGN PROSTATIC HYPERPLASIA WITHOUT LOWER URINRY TRACT SYMP Status: Chronic (11) Hypertension Code(s): I10 - ESSENTIAL (PRIMARY) HYPERTENSION Status: Chronic Qualifiers: Hypertension type: essential hypertension Qualified Code(s): I10 - Essential (primary) hypertension - Plan cont current plan of care, social services aide * today family will decide about NH vs hospice * medication reviewed as below * symptomatic treatment * possible discharge today. Review of Systems - Review of Systems ENT: negative: Ear Pain, Ear Discharge, Nose Pain, Nose Discharge, Nose Congestion, Mouth Pain, Mouth Swelling, Throat Pain, Throat Swelling, Other Respiratory: negative: Cough, Dry, Shortness of Breath, Hemoptysis, SOB with Excertion, Pleuritic Pain, Sputum, Wheezing Cardiovascular: negative: chest pain, palpitations, orthopnea, paroxysmal nocturnal dyspnea, edema, light headedness, other Gastrointestinal: negative: Nausea, Vomiting, Abdominal Pain, Diarrhea, Constipation, Melena, Hematochezia, Other Genitourinary: negative: Dysuria, Frequency, Incontinence, Hematuria, Retention , Other Musculoskeletal: negative: Neck Pain, Shoulder Pain, Arm Pain, Back Pain, Hand Pain, Leg Pain, Foot Pain, Other Skin: negative: Rash, Lesions, [place], Bruising, Other - Medications/Allergies Allergies/Adverse Reactions: Allergies Allergy/AdvReac Type Severity Reaction Status Date / Time No Known Allergies Allergy Verified 02/10/19 10:11 Medications: Current Medications Acetaminophen (Tylenol) 500 mg PO Q6H PRN PRN Reason: Mild Pain (1-3) Last Admin: 03/06/19 16:59 Dose: 500 mg Albuterol/Ipratropium (Duoneb) 3 ml NEB [id number] PRN PRN Reason: SOB &/or Wheezing Artificial Tears (Tears Naturale) 2 drop EA EYE PRN PRN PRN Reason: Dry Eyes Bisacodyl (Dulcolax) 10 mg PO DAILYPRN PRN PRN Reason: Constipation Enoxaparin Sodium (Lovenox) 30 mg SC 0900 CHRISTOPHER Last Admin: 03/17/19 09:09 Dose: 30 mg Guaifenesin (Robitussin Sf) 200 mg PO Q4H PRN PRN Reason: Cough Loperamide HCl (Imodium) 2 mg PO PRN PRN PRN Reason: Diarrhea/Loose Stools Loratadine (Claritin) 10 mg PO DAILYPRN PRN PRN Reason: Sinus Symptoms Mineral Oil/White Petrolatum (Eucerin Cream) 0 gm TOP BIDPRN PRN PRN Reason: Dry Skin Morphine Sulfate (Roxanol Solution) 10 mg SL Q4H PRN PRN Reason: Severe Pain (7-10) Last Admin: 03/17/19 01:32 Dose: 10 mg Ondansetron HCl (Zofran Odt) 4 mg PO Q6H PRN PRN Reason: Nausea/Vomiting Last Admin: 03/13/19 12:20 Dose: 4 mg Polyethylene Glycol (Miralax) 17 gm PO DAILY [facility] Last Admin: 03/17/19 09:09 Dose: 17 gm Saccharomyces Boulardii (Florastor) 250 mg PO DAILY [facility] Last Admin: 03/17/19 09:09 Dose: 250 mg Senna/Docusate Sodium (Senokot S) 2 tab PO BID PRN PRN Reason: Constipation Sodium Chloride ([place] Nasal [place] 0.65%) 0 ml EA NARE QIDPRN PRN PRN Reason: Nasal Congestion Tamsulosin HCl (Flomax) 0.4 mg PO DAILY [facility] Last Admin: 03/17/19 09:09 Dose: Not Given Throat Lozenges (Cepastat Lozenges) 1 topher PO Q2H PRN PRN Reason: Sore Throat
[2019-03-18] MEDS ORDERED: Lorazepam 2 MG/ML VIAL IM PRN (02:00)
[2019-03-18] MEDS: Morphine 10 MG/0.5 ML ORAL SYRINGE SL PRN (02:02)
[2019-03-18] MEDS: Enoxaparin Sodium 30 MG/0.3 ML SYRINGE SC SCH (09:54)
[2019-03-18] MEDS: Saccharomyces boulardii 250 MG CAP PO SCH (09:55)
[2019-03-18] MEDS: Tamsulosin HCl 0.4 MG CAP PO SCH (09:55)
[2019-03-18] MEDS: Polyethylene Glycol 3350 17 GM Packet PO SCH (09:55)
--- NOTE | 2019-03-18 11:09 | PDOC.PN ---
- Subjective Encounter Start Date: 03/18/19 Encounter Start Time: 07:00 last night pt was agitated and he was given ativan, this morning pt is lethargic , - Objective Resuscitation Status - Order Detail: 03/10/19 16:28 Resuscitation Status Routine Resuscitation Status: DNAR: NO Resuscitation Discussed with: mother nedra MCGRATH Reviewed: Yes Vital Signs & Weight: Vital Signs (12 hours) Temp Pulse Resp BP Pulse Ox 03/18/19 10:58 66 92 L 03/18/19 08:25 97.2 F L 98 20 105/71 90 L Weight Admit Weight 119 lb Weight 121 lb 0.54 oz I&O: 03/17/19 03/18/19 03/19/19 06:59 06:59 06:59 Intake Total 100 Balance 100 Result Diagrams: 03/07/19 08:31 03/10/19 09:06 Phys Exam - Physical Examination Constitutional: NAD sleepy HEENT: PERRLA, sclera anicteric Neck: no JVD, supple Respiratory: no wheezing, no rhonchi coarse sound+ Cardiovascular: RRR, no significant murmur, no rub Gastrointestinal: soft, non-tender, no distention, positive bowel sounds Musculoskeletal: no edema, pulses present Lymphatic: no nodes Skin: no rash, normal turgor Dx/Plan (1) Acute metabolic encephalopathy Code(s): G93.41 - METABOLIC ENCEPHALOPATHY Status: Acute Comment: due to hypercalcemia, dehydration, and possibly sepsis (2) Abnormal LFTs Code(s): R94.5 - ABNORMAL RESULTS OF LIVER FUNCTION STUDIES Status: Acute Comment: due to HCC (3) Acute kidney injury Code(s): N17.9 - ACUTE KIDNEY FAILURE, UNSPECIFIED Status: Acute Comment: due to volume deplation, improving (4) Dehydration Code(s): E86.0 - DEHYDRATION Status: Resolved (5) Hypercalcemia of malignancy Code(s): E83.52 - HYPERCALCEMIA Status: Acute Comment: Improved (6) 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 Code(s): C78.00 - SECONDARY MALIGNANT NEOPLASM OF UNSPECIFIED LUNG; C22.0 - LIVER CELL CARCINOMA Status: Acute (7) Protein-calorie malnutrition, severe Code(s): E43 - UNSPECIFIED SEVERE PROTEIN-CALORIE MALNUTRITION Status: Chronic (8) Right lower lobe pneumonia Code(s): J18.1 - LOBAR PNEUMONIA, UNSPECIFIED ORGANISM Status: Acute Comment : treated in hospital (9) Sepsis Code(s): A41.9 - SEPSIS, UNSPECIFIED ORGANISM Status: Resolved (10) BPH (benign prostatic hyperplasia) Code(s): N40.0 - BENIGN PROSTATIC HYPERPLASIA WITHOUT LOWER URINRY TRACT SYMP Status: Chronic (11) Hypertension Code(s): I10 - ESSENTIAL (PRIMARY) HYPERTENSION Status: Chronic Qualifiers: Hypertension type: essential hypertension Qualified Code(s): I10 - Essential (primary) hypertension - Plan cont current plan of care, manager social services * his lethargy is related with meds * he needs comfort care * today hopefully he would be able [facility] with [facility] for comfort care * medication reviewed as below * symptomatic treatment. Review of Systems - Review of Systems Other: unable to review today as he is sleepy and lethargic - Medications/Allergies Allergies/Adverse Reactions: Allergies Allergy/AdvReac Type Severity Reaction Status Date / Time No Known Allergies Allergy Verified 02/10/19 10:11 Medications: Current Medications Acetaminophen (Tylenol) 500 mg PO Q6H PRN PRN Reason: Mild Pain (1-3) Last Admin: 03/06/19 16:59 Dose: 500 mg Albuterol/Ipratropium (Duoneb) 3 ml NEB [id number] PRN PRN Reason: SOB &/or Wheezing Albuterol/Ipratropium (Duoneb) 3 ml NEB NOW CHRISTOPHER Stop: 03/18/19 12:00 Last Admin: 03/18/19 10:58 Dose: 3 ml Artificial Tears (Tears Naturale) 2 drop EA EYE PRN PRN PRN Reason: Dry Eyes Bisacodyl (Dulcolax) 10 mg PO DAILYPRN PRN PRN Reason: Constipation Enoxaparin Sodium (Lovenox) 30 mg SC 0900 CHRISTOPHER Last Admin: 03/18/19 09:54 Dose: Not Given Guaifenesin (Robitussin Sf) 200 mg PO Q4H PRN PRN Reason: Cough Loperamide HCl (Imodium) 2 mg PO PRN PRN PRN Reason: Diarrhea/Loose Stools Loratadine (Claritin) 10 mg PO DAILYPRN PRN PRN Reason: Sinus Symptoms Lorazepam (Ativan) 1 mg IM ONE PRN PRN Reason: Anxiety/Agitation Stop: 03/19/19 02:01 Last Admin: 03/18/19 02:09 Dose: 1 mg Mineral Oil/White Petrolatum (Eucerin Cream) 0 gm TOP BIDPRN PRN PRN Reason: Dry Skin Morphine Sulfate (Roxanol Solution) 10 mg SL Q4H PRN PRN Reason: Severe Pain (7-10) Last Admin: 03/18/19 02:02 Dose: 10 mg Ondansetron HCl (Zofran Odt) 4 mg PO Q6H PRN PRN Reason: Nausea/Vomiting Last Admin: 03/13/19 12:20 Dose: 4 mg Polyethylene Glycol (Miralax) 17 gm PO DAILY [facility] Last Admin: 03/18/19 09:55 Dose: Not Given Saccharomyces Boulardii (Florastor) 250 mg PO DAILY [facility] Last Admin: 03/18/19 09:55 Dose: Not Given Senna/Docusate Sodium (Senokot S) 2 tab PO BID PRN PRN Reason: Constipation Sodium Chloride ([place] Nasal [place] 0.65%) 0 ml EA NARE QIDPRN PRN PRN Reason: Nasal Congestion Tamsulosin HCl (Flomax) 0.4 mg PO DAILY [facility] Last Admin: 03/18/19 09:55 Dose: Not Given Throat Lozenges (Cepastat Lozenges) 1 topher PO Q2H PRN PRN Reason: Sore Throat
--- NOTE | 2019-03-18 11:47 | DIS ---
DATE OF ADMISSION: 03/05/2019 DATE OF DISCHARGE: 03/18/2019 ADDENDUM: Please see my discharge summary dictated on March 12, 2019, as well as addendum dictated on March 16, 2019. This patient's family member spoke with Ned Gaffney and he is planned for discharge to [facility] with [facility] for comfort care. Today, this patient is more lethargic and last night he was agitated, required sedative medications, that may be contributing to this morning lethargy. Anyway, this patient is planned for comfort care only. His long-term prognosis is very poor. There is no new medication required for this particular patient and he just needs comfort care at assisted with the help of hospice team. Family member aware of this. Please see my progress note from today for further detail. Job ID: [id number]
[2019-03-18 12:49] VITALS: BP 123/77; TEMP 97.4
== END 2019-03-18 17:32 | disposition hospice, inpatient (51) | DRG 871 ==
LOC: ERS 08:15 → ERHOLD 10:28 → ONC 13:02
PROVIDERS: ADMIT Internal Medicine; ATTEND Internal Medicine
DX: A41.9 Sepsis, unspecified organism (principal); G93.41 Metabolic encephalopathy; E43 Unspecified severe protein-calorie malnutrition; J18.1 Lobar pneumonia, unspecified organism; N17.9 Acute kidney failure, unspecified; E87.0 Hyperosmolality and hypernatremia; E87.2 Acidosis; C78.00 Secondary malignant neoplasm of unspecified lung; Z68.1 Body mass index [BMI] 19.9 or less, adult; J44.0 Chronic obstructive pulmonary disease with (acute) lower respiratory infection; C22.0 Liver cell carcinoma; R64 Cachexia; Z66 Do not resuscitate; I10 Essential (primary) hypertension; E83.52 Hypercalcemia; E86.0 Dehydration; N40.0 Benign prostatic hyperplasia without lower urinary tract symptoms; K21.9 Gastro-esophageal reflux disease without esophagitis; F17.210 Nicotine dependence, cigarettes, uncomplicated; B18.2 Chronic viral hepatitis C; E87.6 Hypokalemia; R13.12 Dysphagia, oropharyngeal phase; Z87.11 Personal history of peptic ulcer disease; Z79.899 Other long term (current) drug therapy
CPT/HCPCS: 36415; 36416; 70450; 71045; 80048; 80053; 81001; 82550; 83605; 83735; 83880; 83970; 84100; 84484; 85025; 85610; 85730; 87040; 87086; 90471; 90670; 93005; 94640; 94760; 96361; 96365; 96367; 96375; G0009; J1650; J2060; J2270; J2405; J2543; J3370; J3480; J3486; J3489; J3490; J7050; Q0162